=== PATIENT | female | born 1995 | race Caucasian/White ===

== ENCOUNTER 2020-08-25 20:08 | Emergency (ER) | payer BC ==
[2020-08-25 21:09] LABS: Basophils % (A) 0 %; Eosinophils # (A) 0.1 k/uL (0-0.7); Eosinophils % (A) 1 %; HCT 34.2 % (34.0-46.0); HGB 11.5 gm/dL (11.4-16.0); Lymphocytes % (A) 39 %; MCHC 33.6 g/dL (31.0-37.0); MCV 95.3 fL (80.0-100.0); Mean Platelet Volume 7.6; Monocytes # (A) 0.3 k/uL (0-1.0); Monocytes % (A) 6 %; Neutrophils # (A) 2.7 k/uL (1.3-7.7); Neutrophils % (A) 52 %; Platelet Count 214 k/uL (150-450); RBC 3.58 m/uL (3.80-5.40); RDW 12.1 % (11.5-15.5); WBC 5.2 k/uL (3.8-10.6)
--- NOTE | 2020-08-25 21:12 | CT ---
EXAMINATION TYPE: CT brain wo con DATE OF EXAM: 08/25/2020 COMPARISON: None available. HISTORY: Right eye bluriness. Hx epilepisy. Recent shoulder sx CT DLP: 1129.4 mGycm. Automated Exposure Control for Dose Reduction was Utilized. TECHNIQUE: CT scan of the head is performed without contrast. FINDINGS: There is no acute intracranial hemorrhage, mass effect, or midline shift identified. The ventricles and sulci are within normal limits in size. The globes are intact and the visualized sin uses are clear. IMPRESSION: No acute intracranial hemorrhage, mass effect, or midline shift is seen.
[2020-08-25 21:19] LABS: Partial Thromboplastin Time 24.6 sec (22.0-30.0); Prothrombin Time 10.8 sec (9.0-12.0)
[2020-08-25 21:22] LABS: ALT 11 U/L (4-34); AST 23 U/L (14-36); African American GFR (CKD) >90 (>60 ml/min/1.73 sqM); Albumin 4.2 g/dL (3.5-5.0); Alkaline Phosphatase 25 U/L (38-126); Anion Gap 5 mmol/L; Blood Urea Nitrogen 13 mg/dL (7-17); Calcium 9.2 mg/dL (8.4-10.2); Carbon Dioxide 26 mmol/L (22-30); Chloride 105 mmol/L (98-107); Glucose 94 mg/dL (74-99); Non-African American GFR(CKD) >90 (>60 ml/min/1.73 sqM); Potassium 4.5 mmol/L (3.5-5.1); Sodium 136 mmol/L (137-145); Total Protein 6.7 g/dL (6.3-8.2)
[2020-08-25] MEDS ORDERED: HYDROcodone/APAP 10-325MG 1 EACH TAB PO ONE (22:15)
--- NOTE | 2020-08-25 22:17 | ED ---
Eye Problem HPI - General Chief complaint: Eye Problems Stated complaint: Eye Issue Time Seen by Provider: 08/25/20 20:17 Source: patient Mode of arrival: ambulatory Limitations: no limitations - History of Present Illness Initial comments: 24-year-old female with hisotyr of epilepsy presenting today for chief complaint of right eye dilation and blurred vision. Patient states there 5 minutes prior to arrival she was walking into [facility] when she noticed an onset of blurred vision. She's noticed it was only her right eye. Patient had her boyfriend looked I she thought something was in it and he noticed that the pupil was dilated. Patient states her main dilated did not change and she presented to the ER patient denies any associated headache nausea vomiting neck stiffness she denies any known history of aneurysm patient does have history of epilepsy. She denies any medication changes she denies any recent ophthalmology visits are eyedrops being placed into the eye. Patient states that she recently did have a labral repair 2 days ago. Patient denies chest pain shortness of breath and leg swelling. Pt denies vision loss, diplopia, nausea, dizziness. Patient denies pain in the eye. Patient denies eye redness. patient denies experiencing this in the past. denies brain masses. patient appears nontoxic on arrival. no distress. Right arm in sling. - Related Data Allergies Allergy/AdvReac Type Severity Reaction Status Date / Time amoxicillin Allergy Rash/Hives Verified 08/25/20 20:14 dextromethorphan Allergy Rash/Hives Verified 08/25/20 20:14 [From Deconsal DM] Penicillins Allergy Rash/Hives Verified 08/25/20 20:13 phenylephrine Allergy Rash/Hives Verified 08/25/20 20:14 [From Deconsal DM] pyrilamine [From Deconsal DM] Allergy Rash/Hives Verified 08/25/20 20:14 raspberry Allergy Rash/Hives Verified 08/25/20 20:14 sulfamethoxazole Allergy Rash/Hives Verified 08/25/20 20:14 [From Bactrim] trimethoprim [From Bactrim] Allergy Rash/Hives Verified 08/25/20 20:14 Review of Systems ROS Statement: Those systems with pertinent positive or pertinent negative responses have been documented in the HPI. ROS Other: All systems not noted in ROS Statement are negative. Past Medical History Past Medical History: Seizure Disorder History of Any Multi-Drug Resistant Organisms: None Reported Past Psychological History: No Psychological Hx Reported General Exam - General Exam Comments Initial Comments: General: The patient is awake and alert, in no distress Eye: right eye +5 nonreactive, left pupil +3 round and reactive to light, extra-ocular movements are intact. No nystagmus. There is normal conjunctiva bilaterally. No signs of icterus. Visual shore intact to confrontation. 20/25 OD 20/20 OS. IOP OD is 13-14 (done twice). Ears, nose, mouth and throat: There are moist mucous membranes and no oral lesions. Neck: The neck is supple, there is no tenderness or JVD. Cardiovascular: There is a regular rate and rhythm. No murmur, rub or gallop is appreciated. Respiratory: Lungs are clear to auscultation, respirations are non-labored, breath sounds are equal. No wheezes, stridor, rales, or rhonchi. Gastrointestinal: Soft, non-distended, non-tender abdomen without masses or organomegaly noted. There is no rebound or guarding present. Musculoskeletal: Normal ROM, no tenderness. Strength 5/5 of the UE and LE b/l. Sensation intact. No pronator drift Radial pulses equal bilaterally 2+. Neurological: A&O x 3. CN II-XII intact, There are no obvious motor or sensory deficits. Coordination appears grossly intact. Speech is normal. Skin: Skin is warm and dry and no rashes or lesions are noted. Psychiatric: Cooperative, appropriate mood & affect, normal judgment. Limitations: no limitations Course Vital Signs 08/25/20 08/25/20 20:10 22:59 Temperature 97.9 F Pulse Rate 106 H 63 Respiratory 16 20 Rate Blood Pressure 130/69 130/93 O2 Sat by Pulse 98 100 Oximetry Medical Decision Making - Medical Decision Making 24-year-old female presenting for right eye blurred vision with pupil change. Pupil dilated and nonreactive at +5 on arrival. Different from the left pupil. Patient overall has no visual field deficits. Vision is intact. No nystagmus. No focalized neurological deficits aside from the pupil dilation. IOP within normal limits. No obvious retinal abnormalities. Patient had recent labrum repair right-sided, 08/23/20. Patient doesnot have history of new medications or recent eye exams. CT/CTA (-). Patient will be transfered for neurology and ophthalmology evaluation at [facility], i spoke with accepting physician, Dr. Domingo who was agreeable to answer and stated that ophthalmology and neurology were available for consultation. To compound was agreeable to care plan as well as transfer. Patient is agreeable to transfer via EMS - Lab Data Result diagrams: 08/25/20 20:53 08/25/20 20:53 Lab Results 08/25/20 08/25/20 08/25/20 Range/Units 20:53 20:53 20:53 WBC 5.2 (3.8-10.6) k/uL RBC 3.58 L (3.80-5.40) m/uL Hgb 11.5 (11.4-16.0) gm/dL Hct 34.2 (34.0-46.0) % MCV 95.3 (80.0-100.0) fL MCH 32.0 (25.0-35.0) pg MCHC 33.6 (31.0-37.0) g/dL RDW 12.1 (11.5-15.5) % Plt Count 214 (150-450) k/uL MPV 7.6 Neutrophils % 52 % Lymphocytes % 39 % Monocytes % 6 % Eosinophils % 1 % Basophils % 0 % Neutrophils # 2.7 (1.3-7.7) k/uL Lymphocytes # 2.0 (1.0-4.8) k/uL Monocytes # 0.3 (0-1.0) k/uL Eosinophils # 0.1 (0-0.7) k/uL Basophils # 0.0 (0-0.2) k/uL PT 10.8 (9.0-12.0) sec INR 1.0 (<1.2) APTT 24.6 (22.0-30.0) sec Sodium 136 L (137-145) mmol/L Potassium 4.5 (3.5-5.1) mmol/L Chloride 105 (98-107) mmol/L Carbon Dioxide 26 (22-30) mmol/L Anion Gap 5 mmol/L BUN 13 (7-17) mg/dL Creatinine 0.87 (0.52-1.04) mg/dL Est GFR (CKD-EPI)AfAm >90 (>60 ml/min/1.73 sqM) Est GFR (CKD-EPI)NonAf >90 (>60 ml/min/1.73 sqM) Glucose 94 (74-99) mg/dL Calcium 9.2 (8.4-10.2) mg/dL Total Bilirubin 1.0 (0.2-1.3) mg/dL AST 23 (14-36) U/L ALT 11 (4-34) U/L Alkaline Phosphatase 25 L (38-126) U/L Total Protein 6.7 (6.3-8.2) g/dL Albumin 4.2 (3.5-5.0) g/dL Disposition Clinical Impression: Fixed dilated pupil of right eye Disposition: OTHER INSTITUTION NOT DEFINED Condition: Stable Is patient prescribed a controlled substance at d/c from ED?: No Referrals: Serafin Gerber MD [Primary Care Provider] - 1-2 days Time of Disposition: 23:25 - Out of Hospital Transfer - Req. Specs Out of Hospital Transfer - Requested Specifics: Other Emergency Center (Dr. Domingo)
--- NOTE | 2020-08-25 23:10 | CT ---
EXAMINATION TYPE: CT angio head neck DATE OF EXAM: 08/25/2020 COMPARISON: None HISTORY: Right eye blurry, pupil changes. Hx epilepsy. CT DLP: 420.4 mGycm Automated exposure control for dose reduction was used. CONTRAST: Performed with IV Contrast, patient injected with 65 mL of Isovue 370. There are 3-D post processed images. There is normal branching pattern of the great vessels on the aortic arch. There is arterial flow in both subclavian arteries. There is arterial flow in the common internal and external carotid arteries bilaterally. There is art erial flow in both vertebral arteries. There is wide patency of the carotid artery bifurcations. There is arterial flow in the vertebrobasilar artery system. There is no evidence of carotid or verte bral artery aneurysm or dissection. There is arterial flow in the anterior middle and posterior cerebral arteries. There is normal contra st opacification of the venous sinuses. There is no evidence of intracranial aneurysm or neovasculari ty. There is no mass effect. I see no evidence of intracranial arterial stenosis. The remainder of ex am is unremarkable. IMPRESSION: Normal CT angiogram of the neck. Normal CT angiogram of the brain.
[2020-08-25] MEDS ORDERED: MORPHINE SULFATE 2 MG/ML SYRINGE IVP PRN (23:30)
[2020-08-26 00:04] VITALS: BP 140/94; PULSE 64; RESP 18; TEMP 98
== END 2020-08-26 00:06 | disposition other institution (70) ==
LOC: EC 20:08
DX: H57.04 Mydriasis (principal); H53.8 Other visual disturbances; Z88.0 Allergy status to penicillin; Z88.8 Allergy status to other drugs, medicaments and biological substances; Z88.2 Allergy status to sulfonamides; Z88.1 Allergy status to other antibiotic agents; Z91.018 Allergy to other foods; Z86.61 Personal history of infections of the central nervous system
CPT/HCPCS: 36415; 93005; 80053; 85025; 85610; 85730; 70496; 70450; 70498; 99285; 96374; J2270; Q9967

== ENCOUNTER 2020-12-27 10:26 | Emergency (ER) | payer BC ==
[2020-12-27 10:42] VITALS: RESP 18; TEMP 98.1
--- NOTE | 2020-12-27 10:58 | ED ---
Headache HPI - General Chief Complaint: Headache Stated Complaint: Migraine Time Seen by Provider: 12/27/20 10:30 Source: patient, EMS, RN notes reviewed Mode of arrival: EMS Limitations: no limitations - History of Present Illness Initial Comments: This a 25-year-old female presents emergency department via EMS chief complaint of headache possible seizure. Patient states that she has underlying migraines and seizures. Patient states she was at home working states she started getting a crescent shape or on her left eye. Patient states it seemed to move around. She states she started getting headaches that she started late down. She states she laid on her right side she is worried she may have a seizure. Patient states she has epilepsy is on Keppra. Patient states he has not missed any doses. She laid down he felt like she is getting very anxious and noticed some tingling left arm and face. She states his symptoms have resolved. She did take intermittent for headache which is improving her headache. Denies any fevers or chills no neck pain. - Related Data Home Medications Medication Instructions Recorded Confirmed Balziva 1 tab PO DAILY 12/27/20 12/27/20 Folic Acid 1 mg PO DAILY 12/27/20 12/27/20 levETIRAcetam 1,000 mg PO BID 12/27/20 12/27/20 Allergies Allergy/AdvReac Type Severity Reaction Status Date / Time amoxicillin Allergy Rash/Hives Verified 12/27/20 12:04 dextromethorphan Allergy Rash/Hives Verified 12/27/20 12:04 [From Deconsal DM] Penicillins Allergy Rash/Hives Verified 12/27/20 12:04 phenylephrine Allergy Rash/Hives Verified 12/27/20 12:04 [From Deconsal DM] pyrilamine [From Deconsal DM] Allergy Rash/Hives Verified 12/27/20 12:04 raspberry Allergy Rash/Hives Verified 12/27/20 12:04 sulfamethoxazole Allergy Rash/Hives Verified 12/27/20 12:04 [From Bactrim] trimethoprim [From Bactrim] Allergy Rash/Hives Verified 12/27/20 12:04 Review of Systems ROS Statement: Those systems with pertinent positive or pertinent negative responses have been documented in the HPI. ROS Other: All systems not noted in ROS Statement are negative. Past Medical History Past Medical History: Seizure Disorder History of Any Multi-Drug Resistant Organisms: None Reported Past Surgical History: No Surgical Hx Reported Past Psychological History: No Psychological Hx Reported Smoking Status: Never smoker Past Alcohol Use History: None Reported Past Drug Use History: None Reported General Exam Limitations: no limitations General appearance: alert, in no apparent distress Head exam: Present: atraumatic, normocephalic, normal inspection Eye exam: Present: normal appearance, PERRL, EOMI. Absent: scleral icterus, conjunctival injection, periorbital swelling ENT exam: Present: normal exam, normal oropharynx, mucous membranes moist Neck exam: Present: normal inspection, full ROM. Absent: tenderness, meningismus, lymphadenopathy Respiratory exam: Present: normal lung sounds bilaterally. Absent: respiratory distress, wheezes, rales, rhonchi, stridor Cardiovascular Exam: Present: regular rate, normal rhythm, normal heart sounds. Absent: systolic murmur, diastolic murmur, rubs, gallop, clicks Extremities exam: Present: normal inspection, full ROM, normal capillary refill. Absent: tenderness, pedal edema, joint swelling, calf tenderness Neurological exam: Present: alert, oriented X3, CN II-XII intact, reflexes normal. Absent: motor sensory deficit Skin exam: Present: warm, dry, intact, normal color. Absent: rash Course Vital Signs 12/27/20 10:38 Temperature 98.1 F Pulse Rate 67 Respiratory 18 Rate Blood Pressure 118/85 O2 Sat by Pulse 99 Oximetry Medical Decision Making - Medical Decision Making CT is unremarkable. Patient had ocular migraine. Patient will be discharged and stable condition return parameters were discussed. - Lab Data Lab Results 12/27/20 Range/Units 11:00 Urine HCG, Qual Not Detected (Not Detectd) Disposition Clinical Impression: Migraine headache Disposition: HOME SELF-CARE Condition: Stable Instructions (If sedation given, give patient instructions): Acute Headache (ED) Additional Instructions: Please return to the Emergency Department if symptoms worsen or any other concerns. Is patient prescribed a controlled substance at d/c from ED?: No Referrals: Serafin Gerber MD [Primary Care Provider] - 1-2 days Time of Disposition: 12:49
--- NOTE | 2020-12-27 12:42 | CT ---
EXAMINATION TYPE: CT brain wo con DATE OF EXAM: 12/27/2020 COMPARISON: CT brain 08/25/2020 HISTORY: Migraine CT DLP: 1099.4 mGycm. Automated Exposure Control for Dose Reduction was Utilized. TECHNIQUE: CT scan of the head is performed without contrast. FINDINGS: There is no acute intracranial hemorrhage, mass effect, or midline shift identified. The ventricles and sulci are within normal limits in size. The globes are intact and the visualized sin uses are clear. IMPRESSION: No acute intracranial hemorrhage, mass effect, or midline shift is seen.
[2020-12-27 12:58] VITALS: BP 114/69; PULSE 72
== END 2020-12-27 12:58 | disposition home or self-care (01) ==
LOC: EC 10:26
DX: G40.909 Epilepsy, unspecified, not intractable, without status epilepticus (principal); Z88.0 Allergy status to penicillin
CPT/HCPCS: 70450; 81025; 99284

== ENCOUNTER → 2021-01-16 | Outpatient (CLI) | payer BC | LOC: NEUROMAIN 06:54 | PROVIDERS: ATTEND Psychiatry & Neurology Neurology | DX: G40.909 Epilepsy, unspecified, not intractable, without status epilepticus (principal) | CPT/HCPCS: 95713 ==

== ENCOUNTER 2021-06-09 13:03 | Emergency (ER) | payer BC, OTHER ==
[2021-06-09 13:48] VITALS: BP 131/84; PULSE 97; RESP 18; TEMP 98.5
--- NOTE | 2021-06-09 14:21 | ED ---
General Adult HPI - General Chief complaint: Vaginal Bleeding Stated complaint: vaginal bleeding Time Seen by Provider: 06/09/21 14:08 Source: patient, family, RN notes reviewed Mode of arrival: ambulatory Limitations: no limitations - History of Present Illness Initial comments: This is a well-appearing 25-year-old white female that presents to the emergency room with complaints of vaginal bleeding. She states that her control was changed 3 months ago to progesterone only tablet. She has not missed any doses. She does not remember when her last menstrual period was. She is complaining of pelvic cramping. She is also having unprotected sex. She is a when he suffered a miscarriage in the past. She has a history of seizure disorder and is on Keppra. Location: pelvis Severity scale (1-10): 3 Consistency: intermittent Improves with: none Worsens with: none Associated Symptoms: other (Vaginal bleeding) - Related Data Home Medications Medication Instructions Recorded Confirmed Balziva 1 tab PO DAILY 12/27/20 12/27/20 Folic Acid 1 mg PO DAILY 12/27/20 12/27/20 levETIRAcetam 1,000 mg PO BID 12/27/20 12/27/20 Allergies Allergy/AdvReac Type Severity Reaction Status Date / Time amoxicillin Allergy Rash/Hives Verified 06/09/21 13:48 dextromethorphan Allergy Rash/Hives Verified 06/09/21 13:48 [From Deconsal DM] Penicillins Allergy Rash/Hives Verified 06/09/21 13:48 phenylephrine Allergy Rash/Hives Verified 06/09/21 13:48 [From Deconsal DM] pyrilamine [From Deconsal DM] Allergy Rash/Hives Verified 06/09/21 13:48 raspberry Allergy Rash/Hives Verified 06/09/21 13:48 sulfamethoxazole Allergy Rash/Hives Verified 06/09/21 13:48 [From Bactrim] trimethoprim [From Bactrim] Allergy Rash/Hives Verified 06/09/21 13:48 Review of Systems ROS Statement: Those systems with pertinent positive or pertinent negative responses have been documented in the HPI. ROS Other: All systems not noted in ROS Statement are negative. Past Medical History Past Medical History: Seizure Disorder History of Any Multi-Drug Resistant Organisms: None Reported Past Surgical History: Orthopedic Surgery Additional Past Surgical History / Comment(s): Cyst removal Past Psychological History: No Psychological Hx Reported Smoking Status: Never smoker Past Alcohol Use History: Occasional Past Drug Use History: None Reported General Exam Limitations: no limitations General appearance: alert, in no apparent distress Head exam: Present: atraumatic, normocephalic, normal inspection Eye exam: Present: normal appearance, PERRL, EOMI. Absent: scleral icterus, conjunctival injection, periorbital swelling Neck exam: Present: normal inspection, full ROM. Absent: tenderness, meningismus, lymphadenopathy Respiratory exam: Present: normal lung sounds bilaterally. Absent: respiratory distress, wheezes, rales, rhonchi, stridor Cardiovascular Exam: Present: regular rate, normal rhythm, normal heart sounds. Absent: systolic murmur, diastolic murmur, rubs, gallop, clicks GI/Abdominal exam: Present: soft, normal bowel sounds. Absent: distended, tenderness, guarding, rebound, rigid Extremities exam: Present: normal inspection, full ROM, normal capillary refill. Absent: tenderness, pedal edema, joint swelling, calf tenderness Back exam: Present: normal inspection, full ROM. Absent: tenderness Neurological exam: Present: alert, oriented X3 Psychiatric exam: Present: normal affect, normal mood Skin exam: Present: warm, dry, intact, normal color. Absent: rash, cyanosis, diaphoretic, petechiae, pallor Course Vital Signs 06/09/21 13:44 Temperature 98.5 F Pulse Rate 97 Respiratory 18 Rate Blood Pressure 131/84 O2 Sat by Pulse 98 Oximetry Medical Decision Making - Medical Decision Making Urine test is negative, there is no signs of infection. Patient's abdomen is soft and nontender. She is having vaginal bleeding but states that her control pills were changed 3 months ago to progesterone only. This is likely the cause of her vaginal bleeding and she does not remember when her last menstrual cycle was. She was instructed to follow-up with her OSTEOPATHIC RESIDENT. Return to the emergency room with any new or worsening symptoms. - Lab Data Lab Results 06/09/21 06/09/21 Range/Units 15:43 15:43 Urine Color Yellow Urine Appearance Cloudy H (Clear) Urine pH 7.0 (5.0-8.0) Ur Specific [place] 1.013 (1.001-1.035) Urine Protein Negative (Negative) Urine Glucose (UA) Negative (Negative) Urine Ketones Negative (Negative) Urine Blood Large H (Negative) Urine Nitrite Negative (Negative) Urine Bilirubin Negative (Negative) Urine Urobilinogen <2.0 (<2.0) mg/dL Ur Leukocyte Esterase Negative (Negative) Urine RBC <1 (0-5) /hpf Urine WBC <1 (0-5) /hpf Ur Squamous Epith Cells <1 (0-4) /hpf Urine Bacteria Rare H (None) /hpf Urine Mucus Rare H (None) /hpf Urine HCG, Qual Not Detected (Not Detectd) Disposition Clinical Impression: Vaginal bleeding Disposition: HOME SELF-CARE Condition: Good Additional Instructions: Follow-up with 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 Return to the emergency room with any new or worsening symptoms including increased heavy vaginal bleeding or pain. Is patient prescribed a controlled substance at d/c from ED?: No Referrals: Serafin Gerber MD [Primary Care Provider] - 1-2 days Time of Disposition: 16:14
[2021-06-09 15:50] LABS: Appearance,Urine Cloudy (Clear); Bacteria,Urine Rare /hpf; Bilirubin,Urine Negative (Negative); Blood,Urine Large (Negative); Color,Urine Yellow; Glucose,Urine (UA) Negative (Negative); Ketones,Urine Negative (Negative); Leukocyte Esterase,Urine Negative (Negative); Mucus,Urine Rare /hpf; Nitrite,Urine Negative (Negative); Protein,Urine Negative (Negative); RBC,Urine <1 /hpf (0-5); Specific Gravity,Urine 1.013 (1.001-1.035); Squamous Epithelial Cell,Urine <1 /hpf (0-4); Urobilinogen,Urine <2.0 mg/dL (<2.0); WBC,Urine <1 /hpf (0-5)
== END 2021-06-09 16:47 | disposition home or self-care (01) ==
LOC: EC 13:03
DX: N93.9 Abnormal uterine and vaginal bleeding, unspecified (principal); G40.909 Epilepsy, unspecified, not intractable, without status epilepticus; Z79.899 Other long term (current) drug therapy; Z88.0 Allergy status to penicillin; Z88.1 Allergy status to other antibiotic agents; Z88.2 Allergy status to sulfonamides
CPT/HCPCS: 81001; 81025; 99284

== ENCOUNTER 2021-11-15 09:33 | Emergency (ER) | payer BC ==
[2021-11-15 09:38] VITALS: TEMP 98.2
[2021-11-15] MEDS ORDERED: SODIUM CHLORIDE 0.9% 500 ML 500 ML IV ONE (09:47)
[2021-11-15 10:07] LABS: Basophils % (A) 0 %; Eosinophils % (A) 1 %; HCT 31.7 % (34.0-46.0); HGB 11.3 gm/dL (11.4-16.0); Lymphocytes # (A) 1.4 k/uL (1.0-4.8); Lymphocytes % (A) 21 %; MCH 33.3 pg (25.0-35.0); MCHC 35.5 g/dL (31.0-37.0); MCV 93.7 fL (80.0-100.0); Monocytes # (A) 0.3 k/uL (0-1.0); Monocytes % (A) 4 %; Neutrophils # (A) 4.8 k/uL (1.3-7.7); Neutrophils % (A) 72 %; Platelet Count 225 k/uL (150-450); RBC 3.38 m/uL (3.80-5.40); RDW 13.5 % (11.5-15.5); WBC 6.7 k/uL (3.8-10.6)
[2021-11-15 10:26] LABS: ALT 9 U/L (4-34); AST 16 U/L (14-36); African American GFR (CKD) >90 (>60 ml/min/1.73 sqM); Albumin 3.5 g/dL (3.5-5.0); Alkaline Phosphatase 24 U/L (38-126); Anion Gap 5 mmol/L; Blood Urea Nitrogen 10 mg/dL (7-17); Calcium 8.3 mg/dL (8.4-10.2); Carbon Dioxide 23 mmol/L (22-30); Chloride 107 mmol/L (98-107); Glucose 93 mg/dL (74-99); Non-African American GFR(CKD) >90 (>60 ml/min/1.73 sqM); Potassium 3.8 mmol/L (3.5-5.1); Sodium 135 mmol/L (137-145); Total Protein 6.2 g/dL (6.3-8.2)
--- NOTE | 2021-11-15 10:31 | ED ---
General Adult HPI - General Chief complaint: Abdominal Pain Stated complaint: 15 wks preg, abd pain Time Seen by Provider: 11/15/21 09:35 Source: patient, RN notes reviewed, old records reviewed Mode of arrival: ambulatory Limitations: no limitations - History of Present Illness Initial comments: This is a 26-year-old female presents emergency department is 15 weeks . Patient comes in with right lower quadrant abdominal pain. Patient states it started this morning and it seems to increase with movement. Patient denies any nausea vomiting diarrhea. Patient does not want anything for the pain. Patient denies any vaginal bleeding. Patient denies any discharge patient denies any hematuria or urinary frequency or dysuria. Patient denies any fever or chills. Patient denies any back pain. - Related Data Home Medications Medication Instructions Recorded Confirmed Folic Acid 1 mg PO BID 12/27/20 11/15/21 levETIRAcetam 1,000 mg PO BID 12/27/20 11/15/21 Aspirin EC [Ecotrin Low Dose] 81 mg PO DAILY 11/15/21 11/15/21 Cholecalciferol [Vitamin D3 (25 25 mcg PO DAILY 11/15/21 11/15/21 Mcg = 1000 Iu)] Docusate [Colace] 100 mg PO DAILY 11/15/21 11/15/21 Magnesium Oxide 400 mg PO DAILY 11/15/21 11/15/21 Pnv,Calcium 72/Iron/Folic Acid 1 tab PO DAILY 11/15/21 11/15/21 [ Plus Tablet] Ubidecarenone [Co Q-10] 200 mg PO DAILY 11/15/21 11/15/21 Allergies Allergy/AdvReac Type Severity Reaction Status Date / Time amoxicillin Allergy Rash/Hives Verified 11/15/21 10:58 dextromethorphan Allergy Rash/Hives Verified 11/15/21 10:58 [From Deconsal DM] Penicillins Allergy Rash/Hives Verified 11/15/21 10:58 phenylephrine Allergy Rash/Hives Verified 11/15/21 10:58 [From Deconsal DM] pyrilamine [From Deconsal DM] Allergy Rash/Hives Verified 11/15/21 10:58 raspberry Allergy Rash/Hives Verified 11/15/21 10:58 sulfamethoxazole Allergy Rash/Hives Verified 11/15/21 10:58 [From Bactrim] trimethoprim [From Bactrim] Allergy Rash/Hives Verified 11/15/21 10:58 Review of Systems ROS Statement: Those systems with pertinent positive or pertinent negative responses have been documented in the HPI. ROS Other: All systems not noted in ROS Statement are negative. Past Medical History Past Medical History: Seizure Disorder History of Any Multi-Drug Resistant Organisms: None Reported Past Surgical History: Orthopedic Surgery Additional Past Surgical History / Comment(s): Cyst removal Past Psychological History: No Psychological Hx Reported Smoking Status: Never smoker Past Alcohol Use History: Occasional Past Drug Use History: None Reported General Exam - General Exam Comments Initial Comments: GENERAL: Patient is well-developed and well-nourished. Patient is nontoxic and well- hydrated and is in mild distress. ENT: Neck is soft and supple. No significant lymphadenopathy is noted. Oropharynx is clear. Moist mucous membranes. Neck has full range of motion without eliciting any pain. EYES: The sclera were anicteric and conjunctiva were pink and moist. Extraocular movements were intact and pupils were equal round and reactive to light. Eye lids were unremarkable. PULMONARY: Unlabored respirations. Good breath sounds bilaterally. No audible rales rhonchi or wheezing was noted. CARDIOVASCULAR: There is a regular rate and rhythm without any murmurs gallops or rubs. ABDOMEN: Abdomen has rebound tenderness in the right lower quadrant. SKIN: Skin is clear with no lesions or rashes and otherwise unremarkable. NEUROLOGIC: Patient is alert and oriented x3. Cranial nerves II through XII are grossly intact. Motor and sensory are also intact. Normal speech, volume and content. Symmetrical smile. MUSCULOSKELETAL: Normal extremities with adequate strength and full range of motion. LYMPHATICS: No significant lymphadenopathy is noted PSYCHIATRIC: Normal psychiatric evaluation. Limitations: no limitations Course Vital Signs 11/15/21 09:35 Temperature 98.2 F Pulse Rate 95 Respiratory 18 Rate Blood Pressure 110/69 O2 Sat by Pulse 98 Oximetry Medical Decision Making - Medical Decision Making Ultrasound showed a viable intrauterine heart rate was 145. Ultrasound had good flow to the ovary on the right. There was a small cyst. Computed tomography scan to rule out appendicitis was done and there was no signs of appendicitis on the CAT scan patient did get a contrast per rectum and after that she had a large bowel movement stated the pain was considerably bett er. Dr. Zhang was consulted came down and saw the patient and thought the patient to be discharged home as long as there were no signs of appendicitis. Patient understands that appendicitis cannot be ruled out completely and she will return if symptoms worsen or there are any new signs. - Lab Data Result diagrams: 11/15/21 09:56 11/15/21 09:56 Lab Results 11/15/21 11/15/21 11/15/21 Range/Units 09:56 09:56 09:56 WBC 6.7 (3.8-10.6) k/uL RBC 3.38 L (3.80-5.40) m/uL Hgb 11.3 L (11.4-16.0) gm/dL Hct 31.7 L (34.0-46.0) % MCV 93.7 (80.0-100.0) fL MCH 33.3 (25.0-35.0) pg MCHC 35.5 (31.0-37.0) g/dL RDW 13.5 (11.5-15.5) % Plt Count 225 (150-450) k/uL MPV 8.0 Neutrophils % 72 % Lymphocytes % 21 % Monocytes % 4 % Eosinophils % 1 % Basophils % 0 % Neutrophils # 4.8 (1.3-7.7) k/uL Lymphocytes # 1.4 (1.0-4.8) k/uL Monocytes # 0.3 (0-1.0) k/uL Eosinophils # 0.0 (0-0.7) k/uL Basophils # 0.0 (0-0.2) k/uL Sodium 135 L (137-145) mmol/L Potassium 3.8 (3.5-5.1) mmol/L Chloride 107 (98-107) mmol/L Carbon Dioxide 23 (22-30) mmol/L Anion Gap 5 mmol/L BUN 10 (7-17) mg/dL Creatinine 0.56 (0.52-1.04) mg/dL Est GFR (CKD-EPI)AfAm >90 (>60 ml/min/1.73 sqM) Est GFR (CKD-EPI)NonAf >90 (>60 ml/min/1.73 sqM) Glucose 93 (74-99) mg/dL Calcium 8.3 L (8.4-10.2) mg/dL Total Bilirubin 2.0 H (0.2-1.3) mg/dL AST 16 (14-36) U/L ALT 9 (4-34) U/L Alkaline Phosphatase 24 L (38-126) U/L Total Protein 6.2 L (6.3-8.2) g/dL Albumin 3.5 (3.5-5.0) g/dL Urine Color Yellow Urine Appearance Cloudy H (Clear) Urine pH 7.0 (5.0-8.0) Ur Specific Bastian 1.020 (1.001-1.035) Urine Protein Negative (Negative) Urine Glucose (UA) Negative (Negative) Urine Ketones Negative (Negative) Urine Blood Negative (Negative) Urine Nitrite Negative (Negative) Urine Bilirubin Negative (Negative) Urine Urobilinogen <2.0 (<2.0) mg/dL Ur Leukocyte Esterase Small (Negative) Urine WBC 1 (0-5) /hpf Ur Squamous Epith Cells 20 H (0-4) /hpf Urine Bacteria Many H (None) /hpf Disposition Clinical Impression: Abdominal pain Disposition: HOME SELF-CARE Instructions (If sedation given, give patient instructions): Abdominal Pain (ED) Additional Instructions: Patient should return if there is any worsening abdominal pain, nausea vomiting, or fever Is patient prescribed a controlled substance at d/c from ED?: No Referrals: Serafin Gerber MD [Primary Care Provider] - 1-2 days Time of Disposition: 13:28
--- NOTE | 2021-11-15 10:53 | US ---
EXAMINATION TYPE: US abdomen APPY DATE OF EXAM: 11/15/2021 COMPARISON: NONE CLINICAL HISTORY: Right lower quadrant abdominal pain. RLQ pain x 1 day, patient is 15 weeks APPENDIX Appendix not seen IMPRESSION: Nonvisualization of the appendix. No evidence for right lower quadrant abscess or fluid collection.
--- NOTE | 2021-11-15 10:58 | US ---
EXAMINATION TYPE: US OB >= 14 wk fetus DATE OF EXAM: 11/15/2021 COMPARISON: None CLINICAL HISTORY: Right lower quadrant abdominal painRight lower quadrant pain x 1 day TECHNIQUE: Transabdominal (TA) GESTATIONAL AGE / DATING Physician Established: (15 weeks/2 days) EDC: 05/07/2022 Dates by LMP: LMP unknown Dates by First Scan: No previous here Dates by Current Scan: (15 weeks/6 days) EDC: 05/03/2022 SURVEY IUP: Single PLACENTA: Anterior PREVIA: Low Lying - tip of placenta 2.1cm from internal cervical os JEREMY: 10.9 cm Normal CERVICAL LENGTH (transabdominal: norm > 3.0cm): 3.2 cm BIOMETRY PRESENTATION: Breech LIE: Longitudinal BPD: 3.1 cm 15 weeks / 6 days HC: 11.8 cm 15 weeks / 6 days AC: 9.1 cm 15 weeks / 2 days FL: 1.9 cm 15 weeks / 5 days ESTIMATED WEIGHT IN GRAMS: 128 grams ESTIMATED WEIGHT IN LBS/OZ: 0 lbs. 5 oz. WEIGHT PERCENTAGE BASED ON ESTABLISHED DATES: 58% HC/AC: 1.30 Normal FL/AC: 21.36 HEART RATE: 148 bpm RHYTHM: Normal Left Ovary: wnl Right Ovary: 2.1 x 2.0 x 2.1cm corpus luteum, good arterial and venous flow seen, no torsion Bilateral Adnexa: wnl IMPRESSION: Single viable intrauterine . Right ovarian corpus luteal cyst.
[2021-11-15 10:59] LABS: Appearance,Urine Cloudy (Clear); Color,Urine Yellow
[2021-11-15 11:00] LABS: Bilirubin,Urine Negative (Negative); Glucose,Urine (UA) Negative (Negative); Ketones,Urine Negative (Negative); Protein,Urine Negative (Negative)
[2021-11-15 11:01] LABS: Blood,Urine Negative (Negative); Leukocyte Esterase,Urine Small (Negative); Nitrite,Urine Negative (Negative); Urobilinogen,Urine <2.0 mg/dL (<2.0)
[2021-11-15 11:03] LABS: Bacteria,Urine Many /hpf; Squamous Epithelial Cell,Urine 20 /hpf (0-4); WBC,Urine 1 /hpf (0-5)
--- NOTE | 2021-11-15 13:13 | CT ---
EXAMINATION TYPE: CT abdomen pelvis w con DATE OF EXAM: 11/15/2021 COMPARISON: Ultrasound performed earlier same day HISTORY: Rt lower quadrant pain CT DLP: 353.7 mGycm Automated exposure control for dose reduction was used. TECHNIQUE: Helical acquisition of images was performed from the lung bases through the pelvis. CONTRAST: Performed without Oral Contrast and with IV Contrast, patient injected with 100 mL of Isovue 300. FINDINGS: 15 weeks patient. The scan was performed after rectal contrast administration. The scan was performed as requested by the referring physician. Well distended colon. No evidence of contrast leak. Fecal loading of the colon suggestive of constipa tion. Unremarkable ileocecal junction. The appendix could not be properly identified, likely compress ed between the distended cecum, the right ovary and the gravid uterus. No secondary signs of acute ap pendicitis. Tubular slightly hyperenhancing structure is seen in the right side of the lower abdomen superior to the gravid uterus best appreciated in image #51, series 201 which could represent a nondi stended ileal loops. Mild acute appendicitis cannot be excluded. Hepatic dome cyst, otherwise unremarkable liver, gallbladder, pancreas, adrenals and kidneys. Bulky s pleen without definite splenic focal lesion. Unremarkable abdominal aorta. Unremarkable urinary bladd er. Right ovarian cyst/follicle. No suspicious lymphadenopathy or sizable ascites. No bowel obstructi on. No free peritoneal air. Unremarkable lung bases. No aggressive bone lesion. IMPRESSION: The appendix could not be properly identified. No secondary signs of acute appendicitis. The describe d tubular structure in the right lower quadrant superior to the uterus could represent nondistended i mcdowell loops however mild acute appendicitis cannot be excluded. Recommend clinical correlation. Please note that the bowel are suboptimally assessed due to paucity of intra-abdominal fat and the gravid u terus.
[2021-11-15 13:42] VITALS: BP 123/62; PULSE 82; RESP 16
--- NOTE | 2021-11-15 16:00 | P.GSCN ---
History of Present Illness Consult date: 11/15/21 History of present illness: CHIEF COMPLAINT: Abdominal pain HISTORY OF PRESENT ILLNESS: This is a 26-year-old female who presented to hospital with complaints of right lower quadrant abdominal pain that started a little over a week ago. She reports that she did contact her DIRECTOR PUBLIC SERVICE on Thursday and was told that it might be due to round ligament pain. Patient is 15 weeks . Patient denies any nausea or vomiting. She reports that the pain did become more severe. Patient reports that her pain did improve after a bowel movement. She had a computed tomography scan abdomen and pelvis completed which stated that the appendix cannot be properly identified. No secondary signs of acute appendicitis. They describe tubular structure in the right lower quadrant superior to the uterus could represent nondistended ileal loops however mild decubitus is cannot be excluded. Please note that the bowel are supple optimal he assessed due toapucity of intra-abdominal fat and the gravid uterus. Patient seen and examined with Dr. barker. CAT scan results reviewed with Dr. barker. No evidence of an acute appendicitis. Patient is afebrile. And white count is normal. Patient's pain has shown improvement since admission. PAST MEDICAL HISTORY: Seizure disorder PAST SURGICAL HISTORY: See list. MEDICATIONS: See list. ALLERGIES: See list. SOCIAL HISTORY: No illicit drug use. REVIEW OF SYSTEMS: CONSTITUTIONAL: Denies fever or chills. HEENT: Denies blurred vision, vision changes, or eye pain. Denies hemoptysis CARDIOVASCULAR: Denies chest pain or pressure. RESPIRATORY: No shortness of breath. GASTROINTESTINAL: See HPI for pertinent findings HEMATOLOGIC: Denies bleeding disorders. GENITOURINARY: Denies any blood in urine or increased urinary frequency. SKIN: Denies pruitis. Denies rash. PHYSICAL EXAM: VITAL SIGNS: Reviewed GENERAL: Well-developed in no acute distress. HEENT: No sclera icterus. Extraocular movements grossly intact. Moist buccal mucosa. Head is atraumatic, normocephalic. No nasal drainage. ABDOMEN: Soft. Nondistended. Mild tenderness right lower abdomen NEUROLOGIC: Alert and oriented. Cranial nerves II through XII grossly intact. LABORATORY DATA: WBC 6.7 hemoglobin 11.3 platelets 225 Sodium 135 potassium 3.8 creatinine 0.56 LFTs normal IMAGING: Ultrasound shows single viable intrauterine . Right ovarian corpus luteal cyst Computed tomography scan results as stated above ASSESSMENT: 1. Abdominal pain. No evidence of acute appendicitis. Pain could be related to round ligament pain or constipation 2. Right ovarian cyst PLAN: -No surgical intervention planned -Patient is stable from surgical standpoint for discharge -Patient educated to return to the hospital if she has increase in pain and/or fevers Thank you for this consultation Physician Supervisor [employer] note has been reviewed by physician. Signing provider agrees with the documented findings, assessment, and plan of care. Past Medical History Past Medical History: Seizure Disorder History of Any Multi-Drug Resistant Organisms: None Reported Past Surgical History: Orthopedic Surgery Additional Past Surgical History / Comment(s): Cyst removal Past Psychological History: No Psychological Hx Reported Smoking Status: Never smoker Past Alcohol Use History: Occasional Past Drug Use History: None Reported Medications and Allergies Home Medications Medication Instructions Recorded Confirmed Type Folic Acid 1 mg PO BID 12/27/20 11/15/21 History levETIRAcetam 1,000 mg PO BID 12/27/20 11/15/21 History Aspirin EC [Ecotrin Low Dose] 81 mg PO DAILY 11/15/21 11/15/21 History Cholecalciferol [Vitamin D3 (25 25 mcg PO DAILY 11/15/21 11/15/21 History Mcg = 1000 Iu)] Docusate [Colace] 100 mg PO DAILY 11/15/21 11/15/21 History Magnesium Oxide 400 mg PO DAILY 11/15/21 11/15/21 History Pnv,Calcium 72/Iron/Folic Acid 1 tab PO DAILY 11/15/21 11/15/21 History [ Plus Tablet] Ubidecarenone [Co Q-10] 200 mg PO DAILY 11/15/21 11/15/21 History Allergies Allergy/AdvReac Type Severity Reaction Status Date / Time amoxicillin Allergy Rash/Hives Verified 11/15/21 10:58 dextromethorphan Allergy Rash/Hives Verified 11/15/21 10:58 [From Deconsal DM] Penicillins Allergy Rash/Hives Verified 11/15/21 10:58 phenylephrine Allergy Rash/Hives Verified 11/15/21 10:58 [From Deconsal DM] pyrilamine [From Deconsal DM] Allergy Rash/Hives Verified 11/15/21 10:58 raspberry Allergy Rash/Hives Verified 11/15/21 10:58 sulfamethoxazole Allergy Rash/Hives Verified 11/15/21 10:58 [From Bactrim] trimethoprim [From Bactrim] Allergy Rash/Hives Verified 11/15/21 10:58 Surgical - Exam Vital Signs Temp Pulse Resp BP Pulse Ox 98.2 F 95 18 110/69 98 11/15/21 09:35 11/15/21 09:35 11/15/21 09:35 11/15/21 09:35 11/15/21 09:35 Results - Labs 11/15/21 09:56 11/15/21 09:56 Abnormal Lab Results - Last 24 Hours (Table) 11/15/21 11/15/21 11/15/21 Range/Units 09:56 09:56 09:56 RBC 3.38 L (3.80-5.40) m/uL Hgb 11.3 L (11.4-16.0) gm/dL Hct 31.7 L (34.0-46.0) % Sodium 135 L (137-145) mmol/L Calcium 8.3 L (8.4-10.2) mg/dL Total Bilirubin 2.0 H (0.2-1.3) mg/dL Alkaline Phosphatase 24 L (38-126) U/L Total Protein 6.2 L (6.3-8.2) g/dL Urine Appearance Cloudy H (Clear) Ur Squamous Epith Cells 20 H (0-4) /hpf Urine Bacteria Many H (None) /hpf Diabetes panel 11/15/21 Range/Units 09:56 Sodium 135 L (137-145) mmol/L Potassium 3.8 (3.5-5.1) mmol/L Chloride 107 (98-107) mmol/L Carbon Dioxide 23 (22-30) mmol/L BUN 10 (7-17) mg/dL Creatinine 0.56 (0.52-1.04) mg/dL Glucose 93 (74-99) mg/dL Calcium 8.3 L (8.4-10.2) mg/dL AST 16 (14-36) U/L ALT 9 (4-34) U/L Alkaline Phosphatase 24 L (38-126) U/L Total Protein 6.2 L (6.3-8.2) g/dL Albumin 3.5 (3.5-5.0) g/dL Calcium panel 11/15/21 Range/Units 09:56 Calcium 8.3 L (8.4-10.2) mg/dL Albumin 3.5 (3.5-5.0) g/dL Pituitary panel 11/15/21 Range/Units 09:56 Sodium 135 L (137-145) mmol/L Potassium 3.8 (3.5-5.1) mmol/L Chloride 107 (98-107) mmol/L Carbon Dioxide 23 (22-30) mmol/L BUN 10 (7-17) mg/dL Creatinine 0.56 (0.52-1.04) mg/dL Glucose 93 (74-99) mg/dL Calcium 8.3 L (8.4-10.2) mg/dL Adrenal panel 11/15/21 Range/Units 09:56 Sodium 135 L (137-145) mmol/L Potassium 3.8 (3.5-5.1) mmol/L Chloride 107 (98-107) mmol/L Carbon Dioxide 23 (22-30) mmol/L BUN 10 (7-17) mg/dL Creatinine 0.56 (0.52-1.04) mg/dL Glucose 93 (74-99) mg/dL Calcium 8.3 L (8.4-10.2) mg/dL Total Bilirubin 2.0 H (0.2-1.3) mg/dL AST 16 (14-36) U/L ALT 9 (4-34) U/L Alkaline Phosphatase 24 L (38-126) U/L Total Protein 6.2 L (6.3-8.2) g/dL Albumin 3.5 (3.5-5.0) g/dL
== END 2021-11-15 13:54 | disposition home or self-care (01) ==
LOC: EC 09:33
DX: O26.892 Other specified pregnancy related conditions, second trimester (principal); O34.82 Maternal care for other abnormalities of pelvic organs, second trimester; N83.201 Unspecified ovarian cyst, right side; Z3A.15 15 weeks gestation of pregnancy; Z79.82 Long term (current) use of aspirin; Z88.0 Allergy status to penicillin; Z88.1 Allergy status to other antibiotic agents; Z88.2 Allergy status to sulfonamides
CPT/HCPCS: 99284; 36415; 80053; 85025; 81001; 93976; 76705; 76805; 74177; Q9967

== ENCOUNTER 2023-02-06 12:35 | Emergency (ER) | payer OTHER ==
[2023-02-06] MEDS ORDERED: ONDANSETRON 4 MG/2 ML VIAL IVP STA (12:54)
[2023-02-06] MEDS ORDERED: SODIUM CHLORIDE 0.9% 1,000 ML IV STA (12:54)
[2023-02-06] MEDS ORDERED: KETOROLAC 15 MG/ML 1 ML VIAL IVP STA (12:54)
--- NOTE | 2023-02-06 12:59 | ED ---
Abdominal Pain HPI - General Chief Complaint: Abdominal Pain Stated Complaint: upper abd pain/back pain Time Seen by Provider: 02/06/23 12:51 Source: patient, RN notes reviewed Mode of arrival: ambulatory Limitations: no limitations - History of Present Illness Initial Comments: This is a 27-year-old female who presents to the emergency department for ab dominal pain. States that this is in the upper abdomen and wraps around into her back. States that this started shortly after eating fried walleye last night. She has nausea but no vomiting. Denies any changes in bowel habits. Also denies any history of similar symptoms in the past. She went to urgent care before coming here and was told to come to the emergency department for the possibility of a problem with her gallbladder. She is 9 months . She is not breast-feeding. Denies any fevers, chills, sore throat, cough, dyspnea, chest pain, palpitations, vomiting, diarrhea, or headaches. MD Complaint: abdominal pain Onset/Timin -: days(s) Location: RUQ Radiation: back Associated Symptoms: nausea - Related Data Home Medications Medication Instructions Recorded Confirmed Folic Acid 1 mg PO BID 12/27/20 11/15/21 levETIRAcetam 1,000 mg PO BID 12/27/20 11/15/21 Aspirin EC [Ecotrin Low Dose] 81 mg PO DAILY 11/15/21 11/15/21 Cholecalciferol [Vitamin D3 (25 25 mcg PO DAILY 11/15/21 11/15/21 Mcg = 1000 Iu)] Docusate [Colace] 100 mg PO DAILY 11/15/21 11/15/21 Magnesium Oxide 400 mg PO DAILY 11/15/21 11/15/21 Vit No.180/Iron/Folic 1 tab PO DAILY 11/15/21 11/15/21 [ Plus Tablet] Ubidecarenone [Co Q-10] 200 mg PO DAILY 11/15/21 11/15/21 Previous Rx's Medication Instructions Recorded Ketorolac [Toradol] 10 mg PO Q6HR PRN #12 tab 02/06/23 Ondansetron Odt [Zofran Odt] 4 mg PO Q8HR PRN #15 tab 02/06/23 Allergies Allergy/AdvReac Type Severity Reaction Status Date / Time amoxicillin Allergy Rash/Hives Verified 02/06/23 12:48 dextromethorphan Allergy Rash/Hives Verified 02/06/23 12:48 [From Deconsal DM] Penicillins Allergy Rash/Hives Verified 02/06/23 12:48 phenylephrine Allergy Rash/Hives Verified 02/06/23 12:48 [From Deconsal DM] pyrilamine [From Deconsal DM] Allergy Rash/Hives Verified 02/06/23 12:48 raspberry Allergy Rash/Hives Verified 02/06/23 12:48 sulfamethoxazole Allergy Rash/Hives Verified 02/06/23 12:48 [From Bactrim] trimethoprim [From Bactrim] Allergy Rash/Hives Verified 02/06/23 12:48 Review of Systems ROS Statement: Those systems with pertinent positive or pertinent negative responses have been documented in the HPI. ROS Other: All systems not noted in ROS Statement are negative. Past Medical History Past Medical History: Seizure Disorder History of Any Multi-Drug Resistant Organisms: None Reported Past Surgical History: Orthopedic Surgery Additional Past Surgical History / Comment(s): Cyst removal Past Psychological History: No Psychological Hx Reported Smoking Status: Never smoker Past Alcohol Use History: Occasional Past Drug Use History: None Reported General Exam Limitations: no limitations General appearance: alert, in no apparent distress Head exam: Present: atraumatic, normocephalic, normal inspection Respiratory exam: Present: normal lung sounds bilaterally. Absent: respiratory distress, wheezes, rales, rhonchi, stridor Cardiovascular Exam: Present: regular rate, normal rhythm, normal heart sounds. Absent: systolic murmur, diastolic murmur, rubs, gallop, clicks GI/Abdominal exam: Present: soft, tenderness (RUQ), normal bowel sounds. Absent: distended Neurological exam: Present: alert, oriented X3, CN II-XII intact Psychiatric exam: Present: normal affect, normal mood Skin exam: Present: warm, dry, intact, normal color. Absent: rash Course Vital Signs 02/06/23 02/06/23 12:46 15:53 Temperature 98.0 F 98.2 F Pulse Rate 67 72 Respiratory 20 18 Rate Blood Pressure 121/83 120/72 O2 Sat by Pulse 100 98 Oximetry Medical Decision Making - Medical Decision Making This is a 27-year-old female who presents to the emergency department for abdominal pain. Was pt. sent in by a medical professional or institution? @ -Urgent Care Did you speak to anyone other than the patient for history? @ -No Did you review nursing and triage notes? @ -Yes, and I agree, it is accurate with regards to the patient's symptoms. Were old charts reviewed? @ -No Differential Diagnosis? @ -Differential Abdominal Pain Women: Appendicitis, Cholecystitis, diverticulosis, ischemic bowel, pancreatitis, hepatitis, UTI, gastroenteritis, AAA, incarcerated hernia, bowel obstruction, constipation, inflammatory bowel, hepatitis, peptic ulcer disease, splenic infarction, perforated viscus, vulvitis, ovarian torsion, PID, kidney stone, placenta abruption, this is not meant to be an all-inclusive list EKG interpreted by me (3pts min.)? @ -Not obtained X-rays interpreted by me (1pt min.)? @ -Not obtained CT interpreted by me (1pt min.)? @ -Not obtained U/S interpreted by me (1pt. min.)? @ -Gallbladder US obtained. My interpretation identifies no evidence of cholelithiasis or gallbladder wall thickening. What testing was considered but not performed? (CT, X-rays, U/S, labs)? Why? @ -None What meds were considered but not given? Why? @ -None Did you discuss the management of the patient with other professionals? @ -No Did you reconcile home meds? @ -No Was smoking cessation discussed for >3mins.? @ -No Was critical care preformed (if so, how long)? @ -No Were there social determinants of health that impacted care today? How? (Homele ssness, low income, unemployed, alcoholism, drug addiction, transportation, low edu. Level, literacy, decrease access to med. care, longterm, rehab)? @ -No Was there de-escalation of care discussed even if they declined? (Discuss DNR or withdrawal of care, Hospice)? @ -No What co-morbidities impacted this encounter? (DM, HTN, Smoking, COPD, CAD, Cancer, CVA, Hep., AIDS, mental health diagnosis, sleep apnea, morbid obesity)? @ -None Was patient admitted / discharged? @ -Discharged. Lab work obtained and found to be nonactionable. Gallbladder ultrasound also reveals no acute findings. Nausea was well-controlled with Zofran, pain only moderately controlled with Toradol. She was subsequently given Pepcid and [place], which did offer more improvement to the pain. Discussed that while she does not have gallstones, this does not rule out the possibility of biliary dyskinesia, indicating that her gallbladder is not functioning appropriately. We discussed that she would need a HIDA scan in order to diagnose this. Information for GI follow-up provided for further discussion of this. Also advised she discuss this with her primary care provider, as they may be able to order it as well. Prescription for Zofran and Toradol provided with dosing instructions reviewed. Recommended she follow a low-fat bland diet for the meantime to reduce the risk of future episodes in the event this is related to her gallbladder. Undiagnosed new problem with uncertain prognosis? @ -None Drug Therapy requiring intensive monitoring for toxicity (Heparin, Nitro, Insulin, Cardizem)? @ -None Were any procedures done? @ -None Diagnosis/symptom? @ -Biliary dyskinesia Acute, or Chronic, or Acute on Chronic? @ -Acute Uncomplicated (without systemic symptoms) or Complicated (systemic symptoms)? @ -Uncomplicated Side effects of treatment? @ -None Exacerbation, Progression, or Severe Exacerbation] @ -Not applicable Poses a threat to life or bodily function? @ -No Return precautions reviewed in depth, the patient is instructed to return to the emergency department with any new, worsening, or concerning symptoms. Patient verbalized understanding. This case was discussed in detail with the attending ED physician, Dr. Merritt. Presentation, findings, and treatment plan discussed in detail as well. - Lab Data Result diagrams: 02/06/23 13:04 02/06/23 13:04 Lab Results 02/06/23 02/06/23 02/06/23 Range/Units 13:04 13:04 13:04 WBC 3.3 L (3.8-10.6) k/uL RBC 4.25 (3.80-5.40) m/uL Hgb 13.4 (11.4-16.0) gm/dL Hct 38.4 (34.0-46.0) % MCV 90.4 (80.0-100.0) fL MCH 31.4 (25.0-35.0) pg MCHC 34.8 (31.0-37.0) g/dL RDW 12.2 (11.5-15.5) % Plt Count 227 (150-450) k/uL MPV 7.9 Neutrophils % 44 % Lymphocytes % 46 % Monocytes % 6 % Eosinophils % 1 % Basophils % 1 % Neutrophils # 1.4 (1.3-7.7) k/uL Lymphocytes # 1.5 (1.0-4.8) k/uL Monocytes # 0.2 (0-1.0) k/uL Eosinophils # 0.0 (0-0.7) k/uL Basophils # 0.0 (0-0.2) k/uL Sodium 139 (137-145) mmol/L Potassium 4.0 (3.5-5.1) mmol/L Chloride 103 (98-107) mmol/L Carbon Dioxide 27 (22-30) mmol/L Anion Gap 9 mmol/L BUN 12 (7-17) mg/dL Creatinine 0.70 (0.52-1.04) mg/dL Est GFR (CKD-EPI)AfAm >90 (>60 ml/min/1.73 sqM) Est GFR (CKD-EPI)NonAf >90 (>60 ml/min/1.73 sqM) Glucose 97 (74-99) mg/dL Plasma Lactic Acid Jean Carlos 0.6 L (0.7-2.0) mmol/L Calcium 9.0 (8.4-10.2) mg/dL Total Bilirubin 1.6 H (0.2-1.3) mg/dL AST 19 (14-36) U/L ALT 16 (4-34) U/L Alkaline Phosphatase 45 (38-126) U/L Total Protein 7.3 (6.3-8.2) g/dL Albumin 4.4 (3.5-5.0) g/dL Amylase 54 (30-110) U/L Lipase 68 (23-300) U/L HCG, Qual Not Detected - Radiology Data Radiology results: report reviewed, image reviewed Disposition Clinical Impression: Biliary dyskinesia Disposition: HOME SELF-CARE Instructions (If sedation given, give patient instructions): Biliary Dyskinesia (DC) Additional Instructions: Return to the emergency department with any new, worsening, or concerning symptoms. Take either the Toradol or another [id number]-peh-[id number] anti-inflammatory such as ibuprofen. Do not take them together. You may take either of them with Tylenol. The Zofran can be used up to every 8 hours as needed for nausea and vomiting. Contact gastroenterology as listed below for a follow-up appointment and to discuss a HIDA scan for evaluation of gallbladder function. You can also discuss this with your primary care provider. Follow up with your primary care provider in 1-2 days. Prescriptions: Ketorolac [Toradol] 10 mg PO Q6HR PRN #12 tab PRN Reason: Pain Ondansetron Odt [Zofran Odt] 4 mg PO Q8HR PRN #15 tab PRN Reason: Nausea And Vomiting Is patient prescribed a controlled substance at d/c from ED?: No Referrals: Miles Tam MD [Primary Care Provider] - 1-2 days Mikala Macias MD [STAFF PHYSICIAN] - 1-2 days
[2023-02-06 13:31] LABS: Basophils % (A) 1 %; Eosinophils % (A) 1 %; HCT 38.4 % (34.0-46.0); HGB 13.4 gm/dL (11.4-16.0); Lymphocytes # (A) 1.5 k/uL (1.0-4.8); Lymphocytes % (A) 46 %; MCH 31.4 pg (25.0-35.0); MCHC 34.8 g/dL (31.0-37.0); MCV 90.4 fL (80.0-100.0); Mean Platelet Volume 7.9; Monocytes # (A) 0.2 k/uL (0-1.0); Monocytes % (A) 6 %; Neutrophils # (A) 1.4 k/uL (1.3-7.7); Neutrophils % (A) 44 %; Platelet Count 227 k/uL (150-450); RBC 4.25 m/uL (3.80-5.40); RDW 12.2 % (11.5-15.5); WBC 3.3 k/uL (3.8-10.6)
[2023-02-06 13:49] LABS: ALT 16 U/L (4-34); AST 19 U/L (14-36); African American GFR (CKD) >90 (>60 ml/min/1.73 sqM); Albumin 4.4 g/dL (3.5-5.0); Alkaline Phosphatase 45 U/L (38-126); Amylase 54 U/L (30-110); Anion Gap 9 mmol/L; Blood Urea Nitrogen 12 mg/dL (7-17); Carbon Dioxide 27 mmol/L (22-30); Chloride 103 mmol/L (98-107); Glucose 97 mg/dL (74-99); Lipase 68 U/L (23-300); Non-African American GFR(CKD) >90 (>60 ml/min/1.73 sqM); Sodium 139 mmol/L (137-145); Total Bilirubin 1.6 mg/dL (0.2-1.3); Total Protein 7.3 g/dL (6.3-8.2)
[2023-02-06 14:05] LABS: HCG,Qualitative Serum Not Detected
--- NOTE | 2023-02-06 14:06 | US ---
EXAMINATION TYPE: US gallbladder DATE OF EXAM: 02/06/2023 COMPARISON: CT 11/15/2021 CLINICAL INDICATION: Female, 27 years old with history of RUQ pain; TECHNIQUE: Multiple sonographic images of the right upper quadrant are obtained. FINDINGS: EXAM MEASUREMENTS: Liver Length: 13.7 cm Gallbladder Wall: 0.3 cm CBD: 0.4 cm Right Kidney: 11.0 x 3.6 x 4.6 cm API DEVELOPER NOTES: Pancreas: wnl Liver: wnl Gallbladder: No stones seen Evidence for sonographic Schumacher's sign: No CBD: wnl Right Kidney: No hydronephrosis or masses seen IMPRESSION: No shadowing mobile gallstones or ultrasound evidence for acute cholecystitis.
[2023-02-06] MEDS ORDERED: HYDROcodone/APAP 5-325MG 1 EACH TAB PO STA (14:22)
[2023-02-06] MEDS ORDERED: FAMOTIDINE 20 MG/2 ML VIAL IV STA (14:22)
[2023-02-06] MEDS ORDERED: ONDANSETRON 4 MG ODT STARTER PACK 2 TAB BTL PO STA (15:34)
[2023-02-06] MEDS ORDERED: IBUPROFEN 600 MG STARTER PACK 4 TAB BTL PO STA (15:34)
[2023-02-06] MEDS ORDERED: ACET/COD 300 MG/30 MG STARTER PACK 6 TAB BTL PO STA (15:34)
[2023-02-06 15:56] VITALS: BP 120/72; PULSE 72; RESP 18; TEMP 98.2
== END 2023-02-06 15:56 | disposition home or self-care (01) ==
LOC: EC 12:35
DX: K82.8 Other specified diseases of gallbladder (principal); G40.909 Epilepsy, unspecified, not intractable, without status epilepticus; Z79.82 Long term (current) use of aspirin; Z79.899 Other long term (current) drug therapy; Z88.0 Allergy status to penicillin; Z88.1 Allergy status to other antibiotic agents; Z88.2 Allergy status to sulfonamides; Z88.8 Allergy status to other drugs, medicaments and biological substances; Z91.018 Allergy to other foods
CPT/HCPCS: 36415; 80053; 82150; 83605; 83690; 85025; 84703; 76705; 99284; 96374; 96375 ×2; 96361; J2405; J1885; S0119

== ENCOUNTER → 2023-03-04 | Outpatient (CLI) | payer OTHER ==
[2023-03-04 09:10] LABS: ALT 14 U/L (4-34); AST 18 U/L (14-36); African American GFR (CKD) >90 (>60 ml/min/1.73 sqM); Albumin/Globulin Ratio 1.5; Alkaline Phosphatase 38 U/L (38-126); Anion Gap 6 mmol/L; Blood Urea Nitrogen 17 mg/dL (7-17); Calcium 8.8 mg/dL (8.4-10.2); Carbon Dioxide 27 mmol/L (22-30); Chloride 106 mmol/L (98-107); Globulin 2.7 g/dL; Glucose 94 mg/dL (74-99); Non-African American GFR(CKD) >90 (>60 ml/min/1.73 sqM); Potassium 4.5 mmol/L (3.5-5.1); Sodium 139 mmol/L (137-145); Total Bilirubin 1.7 mg/dL (0.2-1.3); Total Protein 6.7 g/dL (6.3-8.2)
[2023-03-04 10:13] LABS: Basophils % (A) 1 %; Eosinophils # (A) 0.1 k/uL (0-0.7); Eosinophils % (A) 2 %; HCT 38.1 % (34.0-46.0); HGB 12.9 gm/dL (11.4-16.0); Lymphocytes # (A) 1.5 k/uL (1.0-4.8); Lymphocytes % (A) 39 %; MCH 31.7 pg (25.0-35.0); MCV 93.3 fL (80.0-100.0); Mean Platelet Volume 7.9; Monocytes # (A) 0.2 k/uL (0-1.0); Monocytes % (A) 6 %; Neutrophils # (A) 1.9 k/uL (1.3-7.7); Neutrophils % (A) 51 %; Platelet Count 236 k/uL (150-450); RBC 4.08 m/uL (3.80-5.40); RDW 12.3 % (11.5-15.5); WBC 3.8 k/uL (3.8-10.6)
== END | disposition home or self-care (01) ==
LOC: LABWHC1 07:50
PROVIDERS: ATTEND Nurse Practitioner Family
DX: R10.11 Right upper quadrant pain (principal)
CPT/HCPCS: 36415; 80053; 85025

== ENCOUNTER → 2023-04-30 | Outpatient (CLI) | payer OTHER ==
--- NOTE | 2023-04-30 14:13 | US ---
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 No evidence for hernia. IMPRESSION: No evidence for hernia.
== END | disposition home or self-care (01) ==
LOC: RADUSWWP 12:42
PROVIDERS: ATTEND Internal Medicine
DX: K41.90 Unilateral femoral hernia, without obstruction or gangrene, not specified as recurrent (principal)

== ENCOUNTER 2023-12-10 09:15 | Emergency (ER) | payer OTHER ==
--- NOTE | 2023-12-10 09:38 | ED ---
Abdominal Pain HPI - General Chief Complaint: Abdominal Pain Stated Complaint: Abd pain, Back pain Time Seen by Provider: 12/10/23 09:36 Source: patient, RN notes reviewed Mode of arrival: ambulatory Limitations: no limitations - History of Present Illness Initial Comments: Patient is a 28-year-old female presented to the ER with a chief complaint of ri ght upper quadrant abdominal pain. She states this pain is sharp and radiates to her back. She also endorses nausea. She states the pain is usually worse after she eats. She recently underwent femoral hernia surgery in September 2023. She reports this right upper quadrant pain started last night and has just increased. Denies any vomiting, constipation/diarrhea or urinary complaints. She states she called her PCP who advised her to come to the ER for evaluation. Has been taking [id number] ibuprofen without relief. - Related Data Home Medications Medication Instructions Recorded Confirmed Folic Acid 1 mg PO BID 12/27/20 11/15/21 levETIRAcetam 1,000 mg PO BID 12/27/20 11/15/21 Aspirin EC [Ecotrin Low Dose] 81 mg PO DAILY 11/15/21 11/15/21 Cholecalciferol [Vitamin D3 (25 25 mcg PO DAILY 11/15/21 11/15/21 Mcg = 1000 Iu)] Docusate [Colace] 100 mg PO DAILY 11/15/21 11/15/21 Magnesium Oxide 400 mg PO DAILY 11/15/21 11/15/21 Vit No.180/Iron/Folic 1 tab PO DAILY 11/15/21 11/15/21 [ Plus Tablet] Ubidecarenone [Co Q-10] 200 mg PO DAILY 11/15/21 11/15/21 Previous Rx's Medication Instructions Recorded Ketorolac [Toradol] 10 mg PO Q6HR PRN #12 tab 02/06/23 Ondansetron Odt [Zofran Odt] 4 mg PO Q8HR PRN #15 tab 02/06/23 HYDROcodone/APAP 5-325MG [[place] 5] 1 each PO Q6HR PRN #12 tab 12/10/23 Omeprazole [PriLOSEC] 20 mg PO AC-BRKFST #30 cap 12/10/23 Ondansetron Odt [Zofran Odt] 4 mg PO Q8HR PRN #20 tab 12/10/23 Allergies Allergy/AdvReac Type Severity Reaction Status Date / Time metoclopramide [From Reglan] Allergy Unknown Unknown Verified 12/10/23 11:38 amoxicillin Allergy Rash/Hives Verified 02/06/23 12:48 dextromethorphan Allergy Rash/Hives Verified 02/06/23 12:48 [From Deconsal DM] Penicillins Allergy Rash/Hives Verified 02/06/23 12:48 phenylephrine Allergy Rash/Hives Verified 02/06/23 12:48 [From Deconsal DM] pyrilamine [From Deconsal DM] Allergy Rash/Hives Verified 02/06/23 12:48 raspberry Allergy Rash/Hives Verified 02/06/23 12:48 sulfamethoxazole Allergy Rash/Hives Verified 02/06/23 12:48 [From Bactrim] trimethoprim [From Bactrim] Allergy Rash/Hives Verified 12/10/23 09:21 vancomycin Allergy Rash/Hives Verified 12/10/23 09:21 Review of Systems ROS Statement: Those systems with pertinent positive or pertinent negative responses have been documented in the HPI. ROS Other: All systems not noted in ROS Statement are negative. Past Medical History Past Medical History: Seizure Disorder History of Any Multi-Drug Resistant Organisms: None Reported Past Surgical History: Hernia Repair, Orthopedic Surgery Additional Past Surgical History / Comment(s): Cyst removal Past Psychological History: No Psychological Hx Reported Smoking Status: Never smoker Past Alcohol Use History: Rare Past Drug Use History: None Reported General Exam Limitations: no limitations General appearance: alert, in no apparent distress Head exam: Present: atraumatic, normocephalic, normal inspection Eye exam: Present: normal appearance, PERRL, EOMI. Absent: scleral icterus, conjunctival injection, periorbital swelling ENT exam: Present: normal exam, mucous membranes moist Respiratory exam: Present: normal lung sounds bilaterally. Absent: respiratory distress, wheezes, rales, rhonchi, stridor Cardiovascular Exam: Present: regular rate, normal rhythm, normal heart sounds. Absent: systolic murmur, diastolic murmur, rubs, gallop, clicks GI/Abdominal exam: Present: soft, tenderness (Generalized no focal tenderness), normal bowel sounds Neurological exam: Present: alert, oriented X3, CN II-XII intact Psychiatric exam: Present: normal affect, normal mood Skin exam: Present: warm, dry, intact, normal color, other (Healing surgical incision right inguinal region). Absent: rash Course Vital Signs 12/10/23 12/10/23 12/10/23 09:16 11:31 13:52 Temperature 97.9 F 98.0 F Pulse Rate 71 53 L 57 L Respiratory 18 18 18 Rate Blood Pressure 115/75 104/67 101/66 O2 Sat by Pulse 100 100 100 Oximetry Medical Decision Making - Medical Decision Making Was pt. sent in by a medical professional or institution (, PA, GROUP INSURANCE SPECIAL AGENT, urgent care, hospital, or penitentiary...) When possible be specific @ -No Did you speak to anyone other than the patient for history (EMS, parent, family, police, friend...)? What history was obtained from this source @ -No Did you review nursing and triage notes (agree or disagree)? Why? @ -I reviewed and agree with nursing and triage notes Were old charts reviewed (outside hosp., previous admission, EMS record, old EKG, old radiological studies, urgent care reports/EKG's, penitentiary records)? Report findings @ -No old charts were reviewed Differential Diagnosis (chest pain, altered mental status, abdominal pain women, abdominal pain men, vaginal bleeding, weakness, fever, dyspnea, syncope, headache, dizziness, GI bleed, back pain, seizure, CVA, palpatations, mental health, musculoskeletal)? @ -Differential Abdominal Pain Women: Appendicitis, Cholecystitis, diverticulosis, ischemic bowel, pancreatitis, hepatitis, UTI, gastroenteritis, AAA, incarcerated hernia, bowel obstruction, constipation, inflammatory bowel, hepatitis, peptic ulcer disease, splenic infarction, perforated viscus, vulvitis, ovarian torsion, PID, kidney stone, placenta abruption, this is not meant to be an all-inclusive list EKG interpreted by me (3pts min.). @ -None X-rays interpreted by me (1pt min.). @ -None done CT interpreted by me (1pt min.). @ -CT abdomen pelvis negative for acute process. U/S interpreted by me (1pt. min.). @ -Gallbladder ultrasound significant for small hepatic cyst. Incomplete distention of the gallbladder may account for diffuse wall thickening. What testing was considered but not performed or refused? (CT, X-rays, U/S, labs)? Why? @ -None What meds were considered but not given or refused? Why? @ -None Did you discuss the management of the patient with other professionals (professionals i.e. , PA, GROUP INSURANCE SPECIAL AGENT, lab, RT, psych nurse, social professionals, consumer experience consultant, teacher, navy airspace officer, disease case manager)? Give summary @ -No Was smoking cessation discussed for >3mins.? @ -No Was critical care preformed (if so, how long)? @ -No Were there social determinants of health that impacted care today? How? (Homelessness, low income, unemployed, alcoholism, drug addiction, transportation, low edu. Level, literacy, decrease access to med. care, assisted, rehab)? @ -No Was there de-escalation of care discussed even if they declined (Discuss DNR or withdrawal of care, Hospice)? DNR status @ -No What co-morbidities impacted this encounter? (DM, HTN, Smoking, COPD, CAD, Cancer, CVA, ARF, Chemo, Hep., AIDS, mental health diagnosis, sleep apnea, morbid obesity)? @ -Patient recently underwent femoral hernia repair. Patient states she had multiple complications with the surgery. Was patient admitted / discharged? Hospital course, mention meds given and route, prescriptions, significant lab abnormalities, going to OR and other pertinent info. @ -Discharge. Patient is a 28-year-old female presented to the ER with a chief complaint of right upper quadrant abdominal pain with radiation to her back. History and physical exam completed. Vitals stable. Patient in no signs of acute distress and nontoxic-appearing. Mild generalized tenderness. No focal abdominal tenderness. Normal bowel sounds. Labs obtained unremarkable. Urine without signs of infection. Imaging negative for acute process. Symptomatic control achieved in the ER. Results discussed with patient and mother, at bedside, all questions answered. I had an extensive conversation about findings. Zofran, Prilosec, [place] prescribed. I advised close follow-up with GI. Referral given. Return parameters discussed. Patient discharged stable condition with follow-up to GI. Case discussed with ED attending, Dr. Merritt. Undiagnosed new problem with uncertain prognosis? @ -No Drug Therapy requiring intensive monitoring for toxicity (Heparin, Nitro, Insulin, Cardizem)? @ -No Were any procedures done? @ -No Diagnosis/symptom? @ -Biliary colic/abdominal pain Acute, or Chronic, or Acute on Chronic? @ -Acute Uncomplicated (without systemic symptoms) or Complicated (systemic symptoms)? @ -Uncomplicated Side effects of treatment? @ -No Exacerbation, Progression, or Severe Exacerbation? @ -No Poses a threat to life or bodily function? How? (Chest pain, USA, VT, pneumonia, PE, COPD, DKA, ARF, appy, cholecystitis, CVA, Diverticulitis, Homicidal, Suicidal, threat to staff... and all critical care pts) @ -No - Lab Data Result diagrams: 12/10/23 09:37 12/10/23 09:37 Lab Results 12/10/23 12/10/23 12/10/23 Range/Units 09:37 09:37 09:37 WBC 3.6 L (3.8-10.6) k/uL RBC 4.68 (3.80-5.40) m/uL Hgb 14.3 (11.4-16.0) gm/dL Hct 42.5 (34.0-46.0) % MCV 90.8 (80.0-100.0) fL MCH 30.7 (25.0-35.0) pg MCHC 33.8 (31.0-37.0) g/dL RDW 13.5 (11.5-15.5) % Plt Count 233 (150-450) k/uL MPV 7.8 Neutrophils % 63 % Lymphocytes % 25 % Monocytes % 8 % Eosinophils % 1 % Basophils % 1 % Neutrophils # 2.2 (1.3-7.7) k/uL Lymphocytes # 0.9 L (1.0-4.8) k/uL Monocytes # 0.3 (0-1.0) k/uL Eosinophils # 0.0 (0-0.7) k/uL Basophils # 0.0 (0-0.2) k/uL Sodium 141 (137-145) mmol/L Potassium 4.4 (3.5-5.1) mmol/L Chloride 105 (98-107) mmol/L Carbon Dioxide 27 (22-30) mmol/L Anion Gap 9 mmol/L BUN 12 (7-17) mg/dL Creatinine 0.75 (0.52-1.04) mg/dL Est GFR (CKD-EPI)AfAm >90 (>60 ml/min/1.73 sqM) Est GFR (CKD-EPI)NonAf >90 (>60 ml/min/1.73 sqM) Glucose 61 L (74-99) mg/dL Plasma Lactic Acid [place] (0.7-2.0) mmol/L Calcium 9.3 (8.4-10.2) mg/dL Total Bilirubin 1.3 (0.2-1.3) mg/dL AST 22 (14-36) U/L ALT 14 (4-34) U/L Alkaline Phosphatase 57 (38-126) U/L Total Protein 7.9 (6.3-8.2) g/dL Albumin 4.6 (3.5-5.0) g/dL Amylase 68 (30-110) U/L Lipase 90 (23-300) U/L Urine Color Urine Appearance (Clear) Urine pH (5.0-8.0) Ur Specific [place] (1.001-1.035) Urine Protein (Negative) Urine Glucose (UA) (Negative) Urine Ketones (Negative) Urine Blood (Negative) Urine Nitrite (Negative) Urine Bilirubin (Negative) Urine Urobilinogen (<2.0) mg/dL Ur Leukocyte Esterase (Negative) Urine HCG, Qual Not Detected (Not Detectd) 12/10/23 12/10/23 Range/Units 09:37 09:37 WBC (3.8-10.6) k/uL RBC (3.80-5.40) m/uL Hgb (11.4-16.0) gm/dL Hct (34.0-46.0) % MCV (80.0-100.0) fL MCH (25.0-35.0) pg MCHC (31.0-37.0) g/dL RDW (11.5-15.5) % Plt Count (150-450) k/uL MPV Neutrophils % % Lymphocytes % % Monocytes % % Eosinophils % % Basophils % % Neutrophils # (1.3-7.7) k/uL Lymphocytes # (1.0-4.8) k/uL Monocytes # (0-1.0) k/uL Eosinophils # (0-0.7) k/uL Basophils # (0-0.2) k/uL Sodium (137-145) mmol/L Potassium (3.5-5.1) mmol/L Chloride (98-107) mmol/L Carbon Dioxide (22-30) mmol/L Anion Gap mmol/L BUN (7-17) mg/dL Creatinine (0.52-1.04) mg/dL Est GFR (CKD-EPI)AfAm (>60 ml/min/1.73 sqM) Est GFR (CKD-EPI)NonAf (>60 ml/min/1.73 sqM) Glucose (74-99) mg/dL Plasma Lactic Acid [place] 1.0 (0.7-2.0) mmol/L Calcium (8.4-10.2) mg/dL Total Bilirubin (0.2-1.3) mg/dL AST (14-36) U/L ALT (4-34) U/L Alkaline Phosphatase (38-126) U/L Total Protein (6.3-8.2) g/dL Albumin (3.5-5.0) g/dL Amylase (30-110) U/L Lipase (23-300) U/L Urine Color Colorless Urine Appearance Clear (Clear) Urine pH 7.0 (5.0-8.0) Ur Specific [place] 1.017 (1.001-1.035) Urine Protein Negative (Negative) Urine Glucose (UA) Negative (Negative) Urine Ketones Negative (Negative) Urine Blood Negative (Negative) Urine Nitrite Negative (Negative) Urine Bilirubin Negative (Negative) Urine Urobilinogen <2.0 (<2.0) mg/dL Ur Leukocyte Esterase Negative (Negative) Urine HCG, Qual (Not Detectd) - Radiology Data Radiology results: report reviewed, image reviewed Disposition Clinical Impression: Right upper quadrant abdominal pain Disposition: HOME SELF-CARE Condition: Stable Instructions (If sedation given, give patient instructions): Peptic Ulcer (ED), Biliary Colic (ED) Additional Instructions: Please follow-up with GI, Dr. Macias. Return to the ER for any new or worsening concerns. Prescriptions: HYDROcodone/APAP 5-325MG [[place] 5] 1 each PO Q6HR PRN #12 tab PRN Reason: Pain Omeprazole [PriLOSEC] 20 mg PO AC-BRKFST #30 cap Ondansetron Odt [Zofran Odt] 4 mg PO Q8HR PRN #20 tab PRN Reason: Nausea Is patient prescribed a controlled substance at d/c from ED?: No Referrals: Miles Tam MD [Primary Care Provider] - 1-2 days Mikala Macias MD [STAFF PHYSICIAN] - 1-2 days Time of Disposition: 13:30
[2023-12-10] MEDS: SODIUM CHLORIDE 0.9% 1,000 ML IV STA ×2 (09:45→11:32)
[2023-12-10] MEDS: KETOROLAC 15 MG/ML 1 ML VIAL IVP STA (09:48)
[2023-12-10] MEDS: ONDANSETRON 4 MG/2 ML VIAL IVP STA ×2 (09:49→13:51)
[2023-12-10 09:56] VITALS: RESP 18
[2023-12-10 09:56] LABS: Appearance,Urine Clear (Clear); Bilirubin,Urine Negative (Negative); Blood,Urine Negative (Negative); Color,Urine Colorless; Glucose,Urine (UA) Negative (Negative); Ketones,Urine Negative (Negative); Leukocyte Esterase,Urine Negative (Negative); Nitrite,Urine Negative (Negative); Protein,Urine Negative (Negative); Specific Gravity,Urine 1.017 (1.001-1.035); Urobilinogen,Urine <2.0 mg/dL (<2.0)
[2023-12-10 10:13] LABS: Basophils % (A) 1 %; Eosinophils % (A) 1 %; HCT 42.5 % (34.0-46.0); HGB 14.3 gm/dL (11.4-16.0); Lymphocytes # (A) 0.9 k/uL (1.0-4.8); Lymphocytes % (A) 25 %; MCH 30.7 pg (25.0-35.0); MCHC 33.8 g/dL (31.0-37.0); MCV 90.8 fL (80.0-100.0); Mean Platelet Volume 7.8; Monocytes # (A) 0.3 k/uL (0-1.0); Monocytes % (A) 8 %; Neutrophils # (A) 2.2 k/uL (1.3-7.7); Neutrophils % (A) 63 %; Platelet Count 233 k/uL (150-450); RBC 4.68 m/uL (3.80-5.40); RDW 13.5 % (11.5-15.5); WBC 3.6 k/uL (3.8-10.6)
--- NOTE | 2023-12-10 10:18 | US ---
EXAMINATION TYPE: US gallbladder DATE OF EXAM: 12/10/2023 COMPARISON: NONE CLINICAL INDICATION: Female, 28 years old with history of RUQ pain; RUQ pain, back pain. Nausea TECHNIQUE: Multiple sonographic images of the right upper quadrant are obtained. FINDINGS: EXAM MEASUREMENTS: Liver Length: 14.8 cm Gallbladder Wall: 0.3 cm CBD: 0.3 cm Right Kidney: 10.6 x 3.6 x 3.9 cm Pancreas: wnl Liver: small anechoic area = 0.9 x 0.8 x 0.8cm appears as a simple cyst Gallbladder: no evidence of stones. Gallbladder wall thickening may be related to incomplete distent ion Evidence for sonographic Schumacher's sign: no CBD: appears wnl Right Kidney: no evidence of hydronephrosis IMPRESSION: 1. Small hepatic cyst. 2. Incomplete distention of the gallbladder may account for the apparent diffuse wall thickening gall bladder.
[2023-12-10 10:21] LABS: ALT 14 U/L (4-34); AST 22 U/L (14-36); African American GFR (CKD) >90 (>60 ml/min/1.73 sqM); Albumin 4.6 g/dL (3.5-5.0); Alkaline Phosphatase 57 U/L (38-126); Amylase 68 U/L (30-110); Anion Gap 9 mmol/L; Blood Urea Nitrogen 12 mg/dL (7-17); Calcium 9.3 mg/dL (8.4-10.2); Carbon Dioxide 27 mmol/L (22-30); Chloride 105 mmol/L (98-107); Glucose 61 mg/dL (74-99); Lipase 90 U/L (23-300); Non-African American GFR(CKD) >90 (>60 ml/min/1.73 sqM); Potassium 4.4 mmol/L (3.5-5.1); Sodium 141 mmol/L (137-145); Total Bilirubin 1.3 mg/dL (0.2-1.3); Total Protein 7.9 g/dL (6.3-8.2)
[2023-12-10] MEDS: MAG HYDROX/AL HYDROX/SIMETH 30 ML, HYOSCYAMINE ELIXIR 10 ML, LIDOCAINE VISCOUS 2% 10 ML PO STA (10:33)
[2023-12-10] MEDS: METOCLOPRAMIDE 5 MG/ML 2 ML VIAL IVP STA (11:32)
[2023-12-10] MEDS: HYDROmorphone 0.5 MG/0.5 ML SYRINGE IVP STA ×2 (11:34→13:49)
--- NOTE | 2023-12-10 12:50 | CT ---
EXAMINATION TYPE: CT abdomen pelvis w con CT DLP: mGycm, Automated exposure control for dose reduction was used. DATE OF EXAM: 12/10/2023 12:34 PM COMPARISON: CT abdomen pelvis most recent from CLINICAL INDICATION:Female, 28 years old with history of right abdominal pain; TECHNIQUE: Axial CT abdomen pelvis w con;Sagittal and coronal reformats were created on a separate w orkstation. Contrast used: 100 mL mL of Isovue 300 , (none if empty) Oral contrast used: (none if empty) FINDINGS: LOWER CHEST: Unremarkable ABDOMEN LIVER: Unremarkable GALLBLADDER AND BILE DUCTS: Unremarkable. PANCREAS: Unremarkable. SPLEEN: Unremarkable. ADRENAL GLANDS: Unremarkable. KIDNEYS AND URETERS: No evidence of hydronephrosis or renal calculus. The ureters are unremarkable. PELVIS BLADDER: Unremarkable REPRODUCTIVE: Unremarkable. ABDOMEN & PELVIS STOMACH AND BOWEL: Stomach and duodenum are unremarkable. No evidence of bowel obstruction. PERITONEUM/RETROPERITONEUM: No evidence of pneumoperitoneum. Trace free fluid suspected. Likely physi ologic VASCULATURE: No evidence of aortic aneurysm. MUSCULOSKELETAL: No acute osseous abnormalities LYMPH NODES: No gross evidence for lymphadenopathy. SOFT TISSUE/ABDOMINAL WALL: Unremarkable IMPRESSION: 1. No definite CT evidence of acute abdominal process.
[2023-12-10 14:15] VITALS: BP 101/66; PULSE 57; TEMP 98
== END 2023-12-10 13:56 | disposition home or self-care (01) ==
LOC: EC 09:15
DX: K76.89 Other specified diseases of liver (principal); K82.8 Other specified diseases of gallbladder; Z88.0 Allergy status to penicillin; Z88.1 Allergy status to other antibiotic agents; Z88.2 Allergy status to sulfonamides; Z88.8 Allergy status to other drugs, medicaments and biological substances
CPT/HCPCS: 36415; 80053; 82150; 83605; 83690; 85025; 81003; 81025; 76705; 74177; 99284; 96374; 96375 ×2; 96376 ×2; 96361 ×3; J2405; J1885; J1170; Q9967

== ENCOUNTER 2024-03-08 15:03 | Emergency (ER) | payer OTHER ==
[2024-03-08 15:09] VITALS: RESP 18
--- NOTE | 2024-03-08 15:46 | ED ---
Abdominal Pain HPI - General Chief Complaint: Abdominal Pain Stated Complaint: Abd/Back Pain Time Seen by Provider: 03/08/24 15:23 Source: patient, RN notes reviewed Mode of arrival: ambulatory Limitations: no limitations - History of Present Illness Initial Comments: 28-year-old female presenting with right upper quadrant pain x 3 hours. Describes the pain as intermittent pain that radiates into her right back. She also endorses nausea but denies vomiting. States she has had episodes of similar pain several times over the past 2 months. She has been to the ER for this several times where they had performed ultrasounds and CT scan of her abdom en which all returned negative. She followed up with a general surgeon who performed a HIDA scan which was negative. He recommended cholecystectomy as there is suspicion for biliary dyskinesia. Patient states she is hesitant to get surgery as they cannot find anything wrong. Patient called the surgeon's office today and they sent her here to rule out acute cholecystitis. Last bowel movement was this morning and was normal. Denies any urinary symptoms, , fever. - Related Data Home Medications Medication Instructions Recorded Confirmed Folic Acid 1 mg PO BID 12/27/20 11/15/21 levETIRAcetam 1,000 mg PO BID 12/27/20 11/15/21 Aspirin EC [Ecotrin Low Dose] 81 mg PO DAILY 11/15/21 11/15/21 Cholecalciferol [Vitamin D3 (25 25 mcg PO DAILY 11/15/21 11/15/21 Mcg = 1000 Iu)] Docusate [Colace] 100 mg PO DAILY 11/15/21 11/15/21 Magnesium Oxide 400 mg PO DAILY 11/15/21 11/15/21 Vit No.180/Iron/Folic 1 tab PO DAILY 11/15/21 11/15/21 [ Plus Tablet] Ubidecarenone [Co Q-10] 200 mg PO DAILY 11/15/21 11/15/21 Previous Rx's Medication Instructions Recorded Ketorolac [Toradol] 10 mg PO Q6HR PRN #12 tab 02/06/23 Ondansetron Odt [Zofran Odt] 4 mg PO Q8HR PRN #15 tab 02/06/23 HYDROcodone/APAP 5-325MG [[place] 5] 1 each PO Q6HR PRN #12 tab 12/10/23 Omeprazole [PriLOSEC] 20 mg PO AC-BRKFST #30 cap 12/10/23 Ondansetron Odt [Zofran Odt] 4 mg PO Q8HR PRN #20 tab 12/10/23 Allergies Allergy/AdvReac Type Severity Reaction Status Date / Time metoclopramide [From Reglan] Allergy Unknown Unknown Verified 12/10/23 11:38 amoxicillin Allergy Rash/Hives Verified 02/06/23 12:48 dextromethorphan Allergy Rash/Hives Verified 02/06/23 12:48 [From Deconsal DM] Penicillins Allergy Rash/Hives Verified 02/06/23 12:48 phenylephrine Allergy Rash/Hives Verified 02/06/23 12:48 [From Deconsal DM] pyrilamine [From Deconsal DM] Allergy Rash/Hives Verified 02/06/23 12:48 raspberry Allergy Rash/Hives Verified 02/06/23 12:48 sulfamethoxazole Allergy Rash/Hives Verified 02/06/23 12:48 [From Bactrim] trimethoprim [From Bactrim] Allergy Rash/Hives Verified 12/10/23 09:21 vancomycin Allergy Rash/Hives Verified 12/10/23 09:21 Review of Systems ROS Statement: Those systems with pertinent positive or pertinent negative responses have been documented in the HPI. ROS Other: All systems not noted in ROS Statement are negative. Past Medical History Past Medical History: Seizure Disorder History of Any Multi-Drug Resistant Organisms: None Reported Past Surgical History: Hernia Repair, Orthopedic Surgery Additional Past Surgical History / Comment(s): Cyst removal Past Psychological History: No Psychological Hx Reported Smoking Status: Never smoker Past Alcohol Use History: Rare Past Drug Use History: None Reported General Exam Limitations: no limitations General appearance: alert, in no apparent distress Respiratory exam: Present: normal lung sounds bilaterally. Absent: respiratory distress, wheezes, rales, rhonchi, stridor Cardiovascular Exam: Present: regular rate, normal rhythm, normal heart sounds. Absent: systolic murmur, diastolic murmur, rubs, gallop, clicks GI/Abdominal exam: Present: soft, tenderness (Mild right upper quadrant tenderness. Negative Schumacher sign), normal bowel sounds. Absent: distended, guarding, rebound, rigid Extremities exam: Present: normal inspection, full ROM, normal capillary refill. Absent: tenderness, pedal edema, joint swelling, calf tenderness Back exam: Present: normal inspection Psychiatric exam: Present: normal affect (Patient is tearful on exam), normal m ood Skin exam: Present: warm, dry, intact, normal color. Absent: rash Course Vital Signs 03/08/24 03/08/24 15:05 17:32 Temperature 97.6 F 98.2 F Pulse Rate 99 70 Respiratory 18 18 Rate Blood Pressure 136/84 112/72 O2 Sat by Pulse 98 100 Oximetry Medical Decision Making - Medical Decision Making Was pt. sent in by a medical professional or institution (, PA, HAM PUMPER, urgent care, hospital, or care home...) When possible be specific @ -No Did you speak to anyone other than the patient for history (EMS, parent, family, police, friend...)? What history was obtained from this source @ -No Did you review nursing and triage notes (agree or disagree)? Why? @ -I reviewed and agree with nursing and triage notes Were old charts reviewed (outside hosp., previous admission, EMS record, old EKG, old radiological studies, urgent care reports/EKG's, care home records)? Report findings @ -No old charts were reviewed Differential Diagnosis (chest pain, altered mental status, abdominal pain women, abdominal pain men, vaginal bleeding, weakness, fever, dyspnea, syncope, headache, dizziness, GI bleed, back pain, seizure, CVA, palpatations, mental h ealth, musculoskeletal)? @ -Differential Abdominal Pain Women: Appendicitis, Cholecystitis, diverticulosis, ischemic bowel, pancreatitis, hepatitis, UTI, gastroenteritis, AAA, incarcerated hernia, bowel obstruction, constipation, inflammatory bowel, hepatitis, peptic ulcer disease, splenic infarction, perforated viscus, vulvitis, ovarian torsion, PID, kidney stone, placenta abruption, this is not meant to be an all-inclusive list EKG interpreted by me (3pts min.). @ -None X-rays interpreted by me (1pt min.). @ -None done CT interpreted by me (1pt min.). @ -None done U/S interpreted by me (1pt. min.). @ -Ultrasound revealed no evidence for acute abdominal process, contracted gallbladder What testing was considered but not performed or refused? (CT, X-rays, U/S, labs)? Why? @ -None What meds were considered but not given or refused? Why? @ -None Did you discuss the management of the patient with other professionals (professionals i.e. , PA, HAM PUMPER, lab, RT, psych nurse, social media manager, dishwasher busser, teacher, zoology technical officer, family service caseworker)? Give summary @ -No Was smoking cessation discussed for >3mins.? @ -No Was critical care preformed (if so, how long)? @ -No Were there social determinants of health that impacted care today? How? (Homelessness, low income, unemployed, alcoholism, drug addiction, transportation, low edu. Level, literacy, decrease access to med. care, usp, rehab)? @ -No Was there de-escalation of care discussed even if they declined (Discuss DNR or withdrawal of care, Hospice)? DNR status @ -No What co-morbidities impacted this encounter? (DM, HTN, Smoking, COPD, CAD, Cancer, CVA, ARF, Chemo, Hep., AIDS, mental health diagnosis, sleep apnea, morbid obesity)? @ -None Was patient admitted / discharged? Hospital course, mention meds given and route, prescriptions, significant lab abnormalities, going to OR and other pertinent info. @ -Patient was discharged. Patient was seen and evaluated for right upper quadrant pain x 3 hours. Patient has history of similar pain and currently follows with surgeon who recommended cholecystectomy due to biliary dyskinesia. Patient's vitals are stable, no acute distress. Physical examination is remarkable for mild tenderness in right upper quadrant, negative Schumacher sign. Patient was given IV fluids as well as IV Toradol and Zofran. Lab work including CBC, CMP, lactic acid, lipase is unremarkable. Urine is unremarkable. Ultrasound reveals no evidence for acute abdominal process. Upon reevaluation, patient is requesting more pain medication at this time. Patient was given IV Dilaudid which mildly reduced pain. Discussed with patient that there does not appear to be any emergent etiology causing pain at this time. Strongly advise close follow-up with surgeon for further workup and probable cholecystectomy as recommended. Return/alarm symptoms discussed with patient and she shows understanding and agrees to plan. Case discussed with my attending Dr. Ruggiero. Patient discharged in stable condition. Undiagnosed new problem with uncertain prognosis? @ -No Drug Therapy requiring intensive monitoring for toxicity (Heparin, Nitro, Insulin, Cardizem)? @ -No Were any procedures done? @ -No Diagnosis/symptom? @ -Right upper quadrant abdominal pain Acute, or Chronic, or Acute on Chronic? @ -Acute Uncomplicated (without systemic symptoms) or Complicated (systemic symptoms)? @ -Uncomplicated Side effects of treatment? @ -No Exacerbation, Progression, or Severe Exacerbation? @ -No Poses a threat to life or bodily function? How? (Chest pain, [place], [place], pneumonia, PE, COPD, DKA, ARF, appy, cholecystitis, CVA, Diverticulitis, Homicidal, Suicidal, threat to staff... and all critical care pts) @ -Low likelihood - Lab Data Result diagrams: 03/08/24 15:47 03/08/24 15:47 Lab Results 03/08/24 03/08/24 03/08/24 Range/Units 15:47 15:47 15:47 WBC 6.2 (3.8-10.6) k/uL RBC 4.48 (3.80-5.40) m/uL Hgb 13.8 (11.4-16.0) gm/dL Hct 40.2 (34.0-46.0) % MCV 89.7 (80.0-100.0) fL MCH 30.9 (25.0-35.0) pg MCHC 34.4 (31.0-37.0) g/dL RDW 12.8 (11.5-15.5) % Plt Count 256 (150-450) k/uL MPV 8.4 Neutrophils % 57 % Lymphocytes % 32 % Monocytes % 7 % Eosinophils % 1 % Basophils % 2 % Neutrophils # 3.5 (1.3-7.7) k/uL Lymphocytes # 2.0 (1.0-4.8) k/uL Monocytes # 0.5 (0-1.0) k/uL Eosinophils # 0.1 (0-0.7) k/uL Basophils # 0.1 (0-0.2) k/uL Sodium (137-145) mmol/L Potassium (3.5-5.1) mmol/L Chloride (98-107) mmol/L Carbon Dioxide (22-30) mmol/L Anion Gap mmol/L BUN (7-17) mg/dL Creatinine (0.52-1.04) mg/dL Est GFR (CKD-EPI)AfAm (>60 ml/min/1.73 sqM) Est GFR (CKD-EPI)NonAf (>60 ml/min/1.73 sqM) Glucose (74-99) mg/dL Plasma Lactic Acid [place] (0.7-2.0) mmol/L Calcium (8.4-10.2) mg/dL Total Bilirubin (0.2-1.3) mg/dL AST (14-36) U/L ALT (4-34) U/L Alkaline Phosphatase (38-126) U/L Total Protein (6.3-8.2) g/dL Albumin (3.5-5.0) g/dL Lipase (23-300) U/L Urine Color Colorless Urine Appearance Cloudy H (Clear) Urine pH 7.5 (5.0-8.0) Ur Specific [place] 1.017 (1.001-1.035) Urine Protein Negative (Negative) Urine Glucose (UA) Negative (Negative) Urine Ketones Negative (Negative) Urine Blood Negative (Negative) Urine Nitrite Negative (Negative) Urine Bilirubin Negative (Negative) Urine Urobilinogen <2.0 (<2.0) mg/dL Ur Leukocyte Esterase Negative (Negative) Urine WBC 2 (0-5) /hpf Ur Squamous Epith Cells 11 H (0-4) /hpf Amorphous Sediment Occasional H (None) /hpf Urine Bacteria Occasional H (None) /hpf Urine Mucus Rare H (None) /hpf Urine HCG, Qual Not Detected (Not Detectd) 03/08/24 03/08/24 Range/Units 15:47 15:47 WBC (3.8-10.6) k/uL RBC (3.80-5.40) m/uL Hgb (11.4-16.0) gm/dL Hct (34.0-46.0) % MCV (80.0-100.0) fL MCH (25.0-35.0) pg MCHC (31.0-37.0) g/dL RDW (11.5-15.5) % Plt Count (150-450) k/uL MPV Neutrophils % % Lymphocytes % % Monocytes % % Eosinophils % % Basophils % % Neutrophils # (1.3-7.7) k/uL Lymphocytes # (1.0-4.8) k/uL Monocytes # (0-1.0) k/uL Eosinophils # (0-0.7) k/uL Basophils # (0-0.2) k/uL Sodium 140 (137-145) mmol/L Potassium 3.8 (3.5-5.1) mmol/L Chloride 106 (98-107) mmol/L Carbon Dioxide 26 (22-30) mmol/L Anion Gap 8 mmol/L BUN 13 (7-17) mg/dL Creatinine 0.72 (0.52-1.04) mg/dL Est GFR (CKD-EPI)AfAm >90 (>60 ml/min/1.73 sqM) Est GFR (CKD-EPI)NonAf >90 (>60 ml/min/1.73 sqM) Glucose 96 (74-99) mg/dL Plasma Lactic Acid [place] 1.4 (0.7-2.0) mmol/L Calcium 9.6 (8.4-10.2) mg/dL Total Bilirubin 1.2 (0.2-1.3) mg/dL AST 18 (14-36) U/L ALT 12 (4-34) U/L Alkaline Phosphatase 43 (38-126) U/L Total Protein 7.3 (6.3-8.2) g/dL Albumin 4.6 (3.5-5.0) g/dL Lipase 160 (23-300) U/L Urine Color Urine Appearance (Clear) Urine pH (5.0-8.0) Ur Specific [place] (1.001-1.035) Urine Protein (Negative) Urine Glucose (UA) (Negative) Urine Ketones (Negative) Urine Blood (Negative) Urine Nitrite (Negative) Urine Bilirubin (Negative) Urine Urobilinogen (<2.0) mg/dL Ur Leukocyte Esterase (Negative) Urine WBC (0-5) /hpf Ur Squamous Epith Cells (0-4) /hpf Amorphous Sediment (None) /hpf Urine Bacteria (None) /hpf Urine Mucus (None) /hpf Urine HCG, Qual (Not Detectd) Disposition Clinical Impression: Right upper quadrant abdominal pain Disposition: HOME SELF-CARE Condition: Stable Instructions (If sedation given, give patient instructions): Abdominal Pain (ED), Biliary Dyskinesia (DC) Additional Instructions: Please follow-up with surgeon for further evaluation. Please return to the Emergency Department if symptoms worsen or any other concerns. Is patient prescribed a controlled substance at d/c from ED?: No Referrals: Miles Tam MD [Primary Care Provider] - 1-2 days Time of Disposition: 17:52
[2024-03-08] MEDS: KETOROLAC 15 MG/ML 1 ML VIAL IVP STA (16:12)
[2024-03-08] MEDS: SODIUM CHLORIDE 0.9% 1,000 ML IV STA (16:12)
[2024-03-08] MEDS: ONDANSETRON 4 MG/2 ML VIAL IVP STA (16:12)
[2024-03-08 16:35] LABS: ALT 12 U/L (4-34); AST 18 U/L (14-36); African American GFR (CKD) >90 (>60 ml/min/1.73 sqM); Albumin 4.6 g/dL (3.5-5.0); Alkaline Phosphatase 43 U/L (38-126); Anion Gap 8 mmol/L; Blood Urea Nitrogen 13 mg/dL (7-17); Calcium 9.6 mg/dL (8.4-10.2); Carbon Dioxide 26 mmol/L (22-30); Chloride 106 mmol/L (98-107); Glucose 96 mg/dL (74-99); Lipase 160 U/L (23-300); Non-African American GFR(CKD) >90 (>60 ml/min/1.73 sqM); Potassium 3.8 mmol/L (3.5-5.1); Sodium 140 mmol/L (137-145); Total Bilirubin 1.2 mg/dL (0.2-1.3); Total Protein 7.3 g/dL (6.3-8.2)
[2024-03-08 16:47] LABS: Basophils # (A) 0.1 k/uL (0-0.2); Basophils % (A) 2 %; Eosinophils # (A) 0.1 k/uL (0-0.7); Eosinophils % (A) 1 %; HCT 40.2 % (34.0-46.0); HGB 13.8 gm/dL (11.4-16.0); Lymphocytes % (A) 32 %; MCH 30.9 pg (25.0-35.0); MCHC 34.4 g/dL (31.0-37.0); MCV 89.7 fL (80.0-100.0); Mean Platelet Volume 8.4; Monocytes # (A) 0.5 k/uL (0-1.0); Monocytes % (A) 7 %; Neutrophils # (A) 3.5 k/uL (1.3-7.7); Neutrophils % (A) 57 %; Platelet Count 256 k/uL (150-450); RBC 4.48 m/uL (3.80-5.40); RDW 12.8 % (11.5-15.5); WBC 6.2 k/uL (3.8-10.6)
[2024-03-08 17:19] LABS: Amorphous Sediment,Urine Occasional /hpf; Appearance,Urine Cloudy (Clear); Bacteria,Urine Occasional /hpf; Bilirubin,Urine Negative (Negative); Blood,Urine Negative (Negative); Color,Urine Colorless; Glucose,Urine (UA) Negative (Negative); Ketones,Urine Negative (Negative); Leukocyte Esterase,Urine Negative (Negative); Mucus,Urine Rare /hpf; Nitrite,Urine Negative (Negative); PH, Urine 7.5 (5.0-8.0); Protein,Urine Negative (Negative); Specific Gravity,Urine 1.017 (1.001-1.035); Squamous Epithelial Cell,Urine 11 /hpf (0-4); Urobilinogen,Urine <2.0 mg/dL (<2.0); WBC,Urine 2 /hpf (0-5)
--- NOTE | 2024-03-08 17:29 | US ---
EXAMINATION TYPE: US gallbladder DATE OF EXAM: 03/08/2024 COMPARISON: US and CT: 12/10/23 CLINICAL INDICATION: Female, 28 years old with history of RUQ pain; RUQ pain on and off but worse tod ay TECHNIQUE: Multiple sonographic images of the right upper quadrant are obtained. FINDINGS: EXAM MEASUREMENTS: Liver Length: 14.0 cm Gallbladder Wall: 0.2 cm CBD: 0.2 cm Right Kidney: 10.4 x 5.6 x 4.2 cm CHANNEL BUSINESS MANAGER NOTES: Pancreas: wnl Liver: wnl Gallbladder: contracted Evidence for sonographic Schumacher's sign: No CBD: wnl Right Kidney: wnl IMPRESSION: No evidence for acute abdominal process. Contracted gallbladder.
[2024-03-08] MEDS: HYDROmorphone 0.5 MG/0.5 ML SYRINGE IVP STA (17:31)
[2024-03-08 18:08] VITALS: BP 118/77; PULSE 72; TEMP 98.1
== END 2024-03-08 18:08 | disposition home or self-care (01) ==
LOC: EC 15:03
DX: R10.11 Right upper quadrant pain (principal); Z88.1 Allergy status to other antibiotic agents; Z88.0 Allergy status to penicillin; Z88.2 Allergy status to sulfonamides; Z88.8 Allergy status to other drugs, medicaments and biological substances; Z91.048 Other nonmedicinal substance allergy status
CPT/HCPCS: 36415; 80053; 83605; 83690; 85025; 81001; 81025; 76705; 99284; 96374; 96375 ×2; 96361; J2405; J1885; J1170

== ENCOUNTER 2024-03-26 23:36 | Emergency (ER) | payer OTHER ==
[2024-03-26 23:48] VITALS: RESP 18; TEMP 98
--- NOTE | 2024-03-27 01:15 | ED ---
General Adult HPI - General Chief complaint: Recheck/Abnormal Lab/Rx Stated complaint: Upper Quadrant Pain, Nausea, Lower ABD Pain Time Seen by Provider: 03/27/24 00:21 Source: patient, RN notes reviewed Mode of arrival: ambulatory Limitations: no limitations - History of Present Illness Initial comments: 28-year-old female presents to the emergency department for evaluation of abdominal pain. Patient states that the pain is in the right upper quadrant and radiates to her back. She does state that she has been experiencing issues with her gallbladder and is scheduled for surgery on . She states that this is scheduled with Dr. Garcia with [facility]. She reports that today the pain came on around 6 PM and she took a [place] at home with no relief. She admits to nausea without vomiting. Denies changes in her urinary or bowel habits. - Related Data Home Medications Medication Instructions Recorded Confirmed Folic Acid 1 mg PO BID 12/27/20 11/15/21 levETIRAcetam 1,000 mg PO BID 12/27/20 11/15/21 Aspirin EC [Ecotrin Low Dose] 81 mg PO DAILY 11/15/21 11/15/21 Cholecalciferol [Vitamin D3 (25 25 mcg PO DAILY 11/15/21 11/15/21 Mcg = 1000 Iu)] Docusate [Colace] 100 mg PO DAILY 11/15/21 11/15/21 Magnesium Oxide 400 mg PO DAILY 11/15/21 11/15/21 Vit No.180/Iron/Folic 1 tab PO DAILY 11/15/21 11/15/21 [ Plus Tablet] Ubidecarenone [Co Q-10] 200 mg PO DAILY 11/15/21 11/15/21 Previous Rx's Medication Instructions Recorded Ketorolac [Toradol] 10 mg PO Q6HR PRN #12 tab 02/06/23 Ondansetron Odt [Zofran Odt] 4 mg PO Q8HR PRN #15 tab 02/06/23 HYDROcodone/APAP 5-325MG [[place] 5] 1 each PO Q6HR PRN #12 tab 12/10/23 Omeprazole [PriLOSEC] 20 mg PO AC-BRKFST #30 cap 12/10/23 Ondansetron Odt [Zofran Odt] 4 mg PO Q8HR PRN #20 tab 12/10/23 Allergies Allergy/AdvReac Type Severity Reaction Status Date / Time metoclopramide [From Reglan] Allergy Unknown Unknown Verified 03/26/24 23:48 amoxicillin Allergy Rash/Hives Verified 03/26/24 23:48 dextromethorphan Allergy Rash/Hives Verified 03/26/24 23:48 [From Deconsal DM] Penicillins Allergy Rash/Hives Verified 03/26/24 23:48 phenylephrine Allergy Rash/Hives Verified 03/26/24 23:48 [From Deconsal DM] pyrilamine [From Deconsal DM] Allergy Rash/Hives Verified 03/26/24 23:48 raspberry Allergy Rash/Hives Verified 03/26/24 23:48 sulfamethoxazole Allergy Rash/Hives Verified 03/26/24 23:48 [From Bactrim] trimethoprim [From Bactrim] Allergy Rash/Hives Verified 03/26/24 23:48 vancomycin Allergy Rash/Hives Verified 03/26/24 23:48 Review of Systems ROS Statement: Those systems with pertinent positive or pertinent negative responses have been documented in the HPI. ROS Other: All systems not noted in ROS Statement are negative. Past Medical History Past Medical History: Seizure Disorder History of Any Multi-Drug Resistant Organisms: None Reported Past Surgical History: Hernia Repair, Orthopedic Surgery Additional Past Surgical History / Comment(s): Cyst removal Past Psychological History: No Psychological Hx Reported Smoking Status: Never smoker Past Alcohol Use History: Rare Past Drug Use History: None Reported General Exam Limitations: no limitations General appearance: alert, in no apparent distress Head exam: Present: atraumatic, normocephalic, normal inspection Eye exam: Present: normal appearance, PERRL, EOMI. Absent: scleral icterus, conjunctival injection, periorbital swelling ENT exam: Present: normal exam, mucous membranes moist Respiratory exam: Present: normal lung sounds bilaterally. Absent: respiratory distress, wheezes, rales, rhonchi, stridor Cardiovascular Exam: Present: regular rate, normal rhythm, normal heart sounds. Absent: systolic murmur, diastolic murmur, rubs, gallop, clicks GI/Abdominal exam: Present: soft, normal bowel sounds. Absent: distended, tenderness, guarding, rebound, rigid Extremities exam: Present: normal inspection, full ROM, normal capillary refill. Absent: tenderness, pedal edema, joint swelling, calf tenderness Back exam: Present: normal inspection. Absent: CVA tenderness (R), CVA tenderness (L) Neurological exam: Present: alert, oriented X3 Psychiatric exam: Present: normal affect, normal mood Skin exam: Present: warm, dry, intact, normal color. Absent: rash Course Vital Signs 03/26/24 03/27/24 03/27/24 23:47 01:18 02:37 Temperature 98 F Pulse Rate 86 79 70 Respiratory 18 18 18 Rate Blood Pressure 125/88 102/65 101/57 O2 Sat by Pulse 96 99 98 Oximetry 03/27/24 03:21 Temperature Pulse Rate 68 Respiratory 18 Rate Blood Pressure 97/56 O2 Sat by Pulse 100 Oximetry Medical Decision Making - Medical Decision Making Was pt. sent in by a medical professional or institution (ROBERTO Howard, DERMATOLOGY TEACHER, urgent care, hospital, or [facility]...) When possible be specific @ -No Did you speak to anyone other than the patient for history (EMS, parent, family, police, friend...)? What history was obtained from this source @ -No Did you review nursing and triage notes (agree or disagree)? Why? @ -I reviewed and agree with nursing and triage notes Were old charts reviewed (outside hosp., previous admission, EMS record, old EKG, old radiological studies, urgent care reports/EKG's, [facility] records)? Report findings @ -No old charts were reviewed Differential Diagnosis (chest pain, altered mental status, abdominal pain women, abdominal pain men, vaginal bleeding, weakness, fever, dyspnea, syncope, headache, dizziness, GI bleed, back pain, seizure, CVA, palpatations, mental health, musculoskeletal)? @ -Differential Abdominal Pain Women: Appendicitis, Cholecystitis, diverticulosis, ischemic bowel, pancreatitis, hepatitis, UTI, gastroenteritis, AAA, incarcerated hernia, bowel obstruction, constipation, inflammatory bowel, hepatitis, peptic ulcer disease, splenic infarction, perforated viscus, vulvitis, ovarian torsion, PID, kidney stone, placenta abruption, this is not meant to be an all-inclusive list EKG interpreted by me (3pts min.). @ -None X-rays interpreted by me (1pt min.). @ -None done CT interpreted by me (1pt min.). @ -None done U/S interpreted by me (1pt. min.). @ -None done What testing was considered but not performed or refused? (CT, X-rays, U/S, labs)? Why? @ -None What meds were considered but not given or refused? Why? @ -None Did you discuss the management of the patient with other professionals (professionals i.e. , PA, DERMATOLOGY TEACHER, lab, RT, psych nurse, forensic social worker, marketing analytics analyst, teacher, fundraising officer, family service caseworker)? Give summary @ -No Was smoking cessation discussed for >3mins.? @ -No Was critical care preformed (if so, how long)? @ -No Were there social determinants of health that impacted care today? How? (Homelessness, low income, unemployed, alcoholism, drug addiction, transportation, low edu. Level, literacy, decrease access to med. care, fci, rehab)? @ -No Was there de-escalation of care discussed even if they declined (Discuss DNR or withdrawal of care, Hospice)? DNR status @ -No What co-morbidities impacted this encounter? (DM, HTN, Smoking, COPD, CAD, Cancer, CVA, ARF, Chemo, Hep., AIDS, mental health diagnosis, sleep apnea, morbid obesity)? @ -None Was patient admitted / discharged? Hospital course, mention meds given and route, prescriptions, significant lab abnormalities, going to OR and other pertinent info. @ -Discharge. Patient presented to the emergency department for evaluation of abdominal pain in the right upper quadrant radiating to her back. She states that she has experienced this in the past. She is scheduled for cholecystectomy upcoming. Laboratory studies obtained.CBC shows no significant leukocytosis; LFTs within normal limits. UA shows no evidence of infectious process, negative urine hCG. Patient was provided analgesia while in the emergency department and IV fluids. She reports improvement in her symptoms following this. She will be discharged home and advised to follow-up with her surgeon as scheduled. Patient stable at time of discharge. Case discussed with Dr. Arias Undiagnosed new problem with uncertain prognosis? @ -No Drug Therapy requiring intensive monitoring for toxicity (Heparin, Nitro, Insulin, Cardizem)? @ -No Were any procedures done? @ -No Diagnosis/symptom? @ -Abdominal pain Acute, or Chronic, or Acute on Chronic? @ -acute Uncomplicated (without systemic symptoms) or Complicated (systemic symptoms)? @ -uncomplicated Side effects of treatment? @ -No Exacerbation, Progression, or Severe Exacerbation? @ -No Poses a threat to life or bodily function? How? (Chest pain, [place], [place], pneumonia, PE, COPD, DKA, ARF, appy, cholecystitis, CVA, Diverticulitis, Homicidal, Suicidal, threat to staff... and all critical care pts) @ -No - Lab Data Result diagrams: 03/27/24 01:10 03/27/24 01:10 Lab Results 03/27/24 03/27/24 03/27/24 Range/Units 01:10 01:10 01:10 WBC 5.4 (3.8-10.6) k/uL RBC 4.06 (3.80-5.40) m/uL Hgb 13.0 (11.4-16.0) gm/dL Hct 37.9 (34.0-46.0) % MCV 93.2 (80.0-100.0) fL MCH 32.1 (25.0-35.0) pg MCHC 34.4 (31.0-37.0) g/dL RDW 12.5 (11.5-15.5) % Plt Count 260 (150-450) k/uL MPV 7.7 Neutrophils % 59 % Lymphocytes % 31 % Monocytes % 6 % Eosinophils % 2 % Basophils % 1 % Neutrophils # 3.2 (1.3-7.7) k/uL Lymphocytes # 1.7 (1.0-4.8) k/uL Monocytes # 0.3 (0-1.0) k/uL Eosinophils # 0.1 (0-0.7) k/uL Basophils # 0.1 (0-0.2) k/uL Sodium 137 (137-145) mmol/L Potassium 3.9 (3.5-5.1) mmol/L Chloride 107 (98-107) mmol/L Carbon Dioxide 22 (22-30) mmol/L Anion Gap 8 mmol/L BUN 21 H (7-17) mg/dL Creatinine 0.72 (0.52-1.04) mg/dL Est GFR (CKD-EPI)AfAm >90 (>60 ml/min/1.73 sqM) Est GFR (CKD-EPI)NonAf >90 (>60 ml/min/1.73 sqM) Glucose 94 (74-99) mg/dL Plasma Lactic Acid Jean [place] 0.7 (0.7-2.0) mmol/L Calcium 9.0 (8.4-10.2) mg/dL Total Bilirubin 1.5 H (0.2-1.3) mg/dL AST 23 (14-36) U/L ALT 10 (4-34) U/L Alkaline Phosphatase 38 (38-126) U/L Total Protein 6.5 (6.3-8.2) g/dL Albumin 4.1 (3.5-5.0) g/dL Amylase 55 (30-110) U/L Lipase 96 (23-300) U/L Urine Color Urine Appearance (Clear) Urine pH (5.0-8.0) Ur Specific [place] (1.001-1.035) Urine Protein (Negative) Urine Glucose (UA) (Negative) Urine Ketones (Negative) Urine Blood (Negative) Urine Nitrite (Negative) Urine Bilirubin (Negative) Urine Urobilinogen (<2.0) mg/dL Ur Leukocyte Esterase (Negative) Urine HCG, Qual (Not Detectd) 03/27/24 03/27/24 Range/Units 02:11 02:11 WBC (3.8-10.6) k/uL RBC (3.80-5.40) m/uL Hgb (11.4-16.0) gm/dL Hct (34.0-46.0) % MCV (80.0-100.0) fL MCH (25.0-35.0) pg MCHC (31.0-37.0) g/dL RDW (11.5-15.5) % Plt Count (150-450) k/uL MPV Neutrophils % % Lymphocytes % % Monocytes % % Eosinophils % % Basophils % % Neutrophils # (1.3-7.7) k/uL Lymphocytes # (1.0-4.8) k/uL Monocytes # (0-1.0) k/uL Eosinophils # (0-0.7) k/uL Basophils # (0-0.2) k/uL Sodium (137-145) mmol/L Potassium (3.5-5.1) mmol/L Chloride (98-107) mmol/L Carbon Dioxide (22-30) mmol/L Anion Gap mmol/L BUN (7-17) mg/dL Creatinine (0.52-1.04) mg/dL Est GFR (CKD-EPI)AfAm (>60 ml/min/1.73 sqM) Est GFR (CKD-EPI)NonAf (>60 ml/min/1.73 sqM) Glucose (74-99) mg/dL Plasma Lactic Acid [place] (0.7-2.0) mmol/L Calcium (8.4-10.2) mg/dL Total Bilirubin (0.2-1.3) mg/dL AST (14-36) U/L ALT (4-34) U/L Alkaline Phosphatase (38-126) U/L Total Protein (6.3-8.2) g/dL Albumin (3.5-5.0) g/dL Amylase (30-110) U/L Lipase (23-300) U/L Urine Color Colorless Urine Appearance Clear (Clear) Urine pH 6.5 (5.0-8.0) Ur Specific [place] 1.011 (1.001-1.035) Urine Protein Negative (Negative) Urine Glucose (UA) Negative (Negative) Urine Ketones Negative (Negative) Urine Blood Negative (Negative) Urine Nitrite Negative (Negative) Urine Bilirubin Negative (Negative) Urine Urobilinogen <2.0 (<2.0) mg/dL Ur Leukocyte Esterase Negative (Negative) Urine HCG, Qual Not Detected (Not Detectd) Disposition Clinical Impression: Abdominal pain Disposition: HOME SELF-CARE Condition: Stable Instructions (If sedation given, give patient instructions): Abdominal Pain ( ED) Additional Instructions: Please follow up with your surgeon as scheduled. Return to the emergency department for new or worsening symptoms. Is patient prescribed a controlled substance at d/c from ED?: No Referrals: Miles Tam MD [Primary Care Provider] - 1-2 days
[2024-03-27] MEDS: ONDANSETRON 4 MG/2 ML VIAL IVP STA (01:16)
[2024-03-27] MEDS: SODIUM CHLORIDE 0.9% 1,000 ML IV STA (01:17)
[2024-03-27] MEDS: KETOROLAC 15 MG/ML 1 ML VIAL IVP STA (01:17)
[2024-03-27] MEDS: HYDROmorphone 0.5 MG/0.5 ML SYRINGE IVP STA (01:20)
[2024-03-27 01:23] LABS: Basophils # (A) 0.1 k/uL (0-0.2); Basophils % (A) 1 %; Eosinophils # (A) 0.1 k/uL (0-0.7); Eosinophils % (A) 2 %; HCT 37.9 % (34.0-46.0); Lymphocytes # (A) 1.7 k/uL (1.0-4.8); Lymphocytes % (A) 31 %; MCH 32.1 pg (25.0-35.0); MCHC 34.4 g/dL (31.0-37.0); MCV 93.2 fL (80.0-100.0); Mean Platelet Volume 7.7; Monocytes # (A) 0.3 k/uL (0-1.0); Monocytes % (A) 6 %; Neutrophils # (A) 3.2 k/uL (1.3-7.7); Neutrophils % (A) 59 %; Platelet Count 260 k/uL (150-450); RBC 4.06 m/uL (3.80-5.40); RDW 12.5 % (11.5-15.5); WBC 5.4 k/uL (3.8-10.6)
[2024-03-27 01:38] LABS: ALT 10 U/L (4-34); AST 23 U/L (14-36); African American GFR (CKD) >90 (>60 ml/min/1.73 sqM); Albumin 4.1 g/dL (3.5-5.0); Alkaline Phosphatase 38 U/L (38-126); Amylase 55 U/L (30-110); Anion Gap 8 mmol/L; Blood Urea Nitrogen 21 mg/dL (7-17); Carbon Dioxide 22 mmol/L (22-30); Chloride 107 mmol/L (98-107); Glucose 94 mg/dL (74-99); Lipase 96 U/L (23-300); Non-African American GFR(CKD) >90 (>60 ml/min/1.73 sqM); Potassium 3.9 mmol/L (3.5-5.1); Sodium 137 mmol/L (137-145); Total Bilirubin 1.5 mg/dL (0.2-1.3); Total Protein 6.5 g/dL (6.3-8.2)
[2024-03-27] MEDS: HYDROmorphone 1 MG/ML 1 ML SYRINGE IVP STA (02:37)
[2024-03-27 02:49] LABS: Appearance,Urine Clear (Clear); Bilirubin,Urine Negative (Negative); Blood,Urine Negative (Negative); Color,Urine Colorless; Glucose,Urine (UA) Negative (Negative); Ketones,Urine Negative (Negative); Leukocyte Esterase,Urine Negative (Negative); Nitrite,Urine Negative (Negative); PH, Urine 6.5 (5.0-8.0); Protein,Urine Negative (Negative); Specific Gravity,Urine 1.011 (1.001-1.035); Urobilinogen,Urine <2.0 mg/dL (<2.0)
[2024-03-27 03:22] VITALS: BP 97/56; PULSE 68
== END 2024-03-27 03:23 | disposition home or self-care (01) ==
LOC: EC 23:36
DX: R10.11 Right upper quadrant pain (principal); Z88.0 Allergy status to penicillin; Z88.8 Allergy status to other drugs, medicaments and biological substances; Z88.1 Allergy status to other antibiotic agents; Z88.2 Allergy status to sulfonamides; Z91.018 Allergy to other foods
CPT/HCPCS: 36415; 80053; 82150; 83605; 83690; 85025; 81003; 81025; 99284; 96374; 96375 ×2; 96376; 96361 ×2; J2405; J1170 ×2; J1885

== ENCOUNTER 2024-04-03 22:37 | Emergency (ER) | payer OTHER ==
[2024-04-03 22:51] VITALS: PULSE 61; TEMP 97.9
[2024-04-03 23:30] LABS: Appearance,Urine Cloudy (Clear); Bacteria,Urine Rare /hpf; Bilirubin,Urine 2+ (Negative); Blood,Urine Trace (Negative); Color,Urine Dark Brown; Glucose,Urine (UA) Negative (Negative); Ketones,Urine Negative (Negative); Leukocyte Esterase,Urine Negative (Negative); Mucus,Urine Rare /hpf; Nitrite,Urine Positive (Negative); Protein,Urine 1+ (Negative); RBC,Urine 9 /hpf (0-5); Specific Gravity,Urine 1.017 (1.001-1.035); Squamous Epithelial Cell,Urine 10 /hpf (0-4); WBC,Urine 56 /hpf (0-5)
[2024-04-03] MEDS: SODIUM CHLORIDE 0.9% 1,000 ML IV STA (23:34)
[2024-04-03 23:44] LABS: Basophils % (A) 0 %; Eosinophils # (A) 0.1 k/uL (0-0.7); Eosinophils % (A) 1 %; HCT 33.3 % (34.0-46.0); HGB 11.4 gm/dL (11.4-16.0); Lymphocytes # (A) 1.3 k/uL (1.0-4.8); Lymphocytes % (A) 25 %; MCH 31.9 pg (25.0-35.0); MCHC 34.1 g/dL (31.0-37.0); MCV 93.5 fL (80.0-100.0); Monocytes # (A) 0.4 k/uL (0-1.0); Monocytes % (A) 7 %; Neutrophils # (A) 3.4 k/uL (1.3-7.7); Neutrophils % (A) 66 %; Platelet Count 222 k/uL (150-450); RBC 3.56 m/uL (3.80-5.40); RDW 12.6 % (11.5-15.5); WBC 5.1 k/uL (3.8-10.6)
[2024-04-03] MEDS: ONDANSETRON 4 MG/2 ML VIAL IVP STA (23:53)
[2024-04-03] MEDS: KETOROLAC 15 MG/ML 1 ML VIAL IVP STA (23:54)
[2024-04-03] MEDS: MORPHINE SULFATE 4 MG/ML SYRINGE IVP STA (23:54)
[2024-04-04 00:13] LABS: ALT 72 U/L (4-34); AST 36 U/L (14-36); African American GFR (CKD) >90 (>60 ml/min/1.73 sqM); Alkaline Phosphatase 57 U/L (38-126); Anion Gap 5 mmol/L; Blood Urea Nitrogen 6 mg/dL (7-17); Carbon Dioxide 29 mmol/L (22-30); Chloride 103 mmol/L (98-107); Glucose 114 mg/dL (74-99); Non-African American GFR(CKD) >90 (>60 ml/min/1.73 sqM); Potassium 4.2 mmol/L (3.5-5.1); Sodium 137 mmol/L (137-145); Total Bilirubin 1.8 mg/dL (0.2-1.3); Total Protein 6.4 g/dL (6.3-8.2)
--- NOTE | 2024-04-04 00:39 | ED ---
Female Urogenital HPI - General Chief complaint: Urogenital Stated complaint: UTI, Back Pain Time Seen by Provider: 04/03/24 22:52 Source: patient, RN notes reviewed Mode of arrival: ambulatory Limitations: no limitations - History of Present Illness Initial comments: This is a 28-year-old female who presents to the emergency department for a UTI and back pain. Patient states that she had her gallbladder out 3 days ago and 2 days ago started to get burning with urination. She went to urgent care earlier today and was diagnosed with a UTI. They sent in a prescription for antibiotics, however the pharmacy would not give them to her as it was an an tibiotic she is allergic to. States that over the last 1 hour she started to develop pain in the right flank with associated nausea. She tried taking her [place] and ibuprofen but did not have any relief. Denies any history of kidney stones. MD Complaint: dysuria - Related Data Home Medications Medication Instructions Recorded Confirmed Folic Acid 1 mg PO BID 12/27/20 11/15/21 levETIRAcetam 1,000 mg PO BID 12/27/20 11/15/21 Aspirin EC [Ecotrin Low Dose] 81 mg PO DAILY 11/15/21 11/15/21 Cholecalciferol [Vitamin D3 (25 25 mcg PO DAILY 11/15/21 11/15/21 Mcg = 1000 Iu)] Docusate [Colace] 100 mg PO DAILY 11/15/21 11/15/21 Magnesium Oxide 400 mg PO DAILY 11/15/21 11/15/21 Vit No.180/Iron/Folic 1 tab PO DAILY 11/15/21 11/15/21 [ Plus Tablet] Ubidecarenone [Co Q-10] 200 mg PO DAILY 11/15/21 11/15/21 Previous Rx's Medication Instructions Recorded Ketorolac [Toradol] 10 mg PO Q6HR PRN #12 tab 02/06/23 Ondansetron Odt [Zofran Odt] 4 mg PO Q8HR PRN #15 tab 02/06/23 HYDROcodone/APAP 5-325MG [[place] 5] 1 each PO Q6HR PRN #12 tab 12/10/23 Omeprazole [PriLOSEC] 20 mg PO AC-BRKFST #30 cap 12/10/23 Ondansetron Odt [Zofran Odt] 4 mg PO Q8HR PRN #20 tab 12/10/23 Ketorolac [Toradol] 10 mg PO Q6HR PRN #15 tab 04/04/24 Levofloxacin [Levaquin] 750 mg PO DAILY 5 Days #5 tab 04/04/24 Ondansetron Odt [Zofran Odt] 4 mg PO Q8HR PRN #20 tab 04/04/24 Allergies Allergy/AdvReac Type Severity Reaction Status Date / Time metoclopramide [From Reglan] Allergy Unknown Unknown Verified 04/03/24 22:51 amoxicillin Allergy Rash/Hives Verified 04/03/24 22:51 dextromethorphan Allergy Rash/Hives Verified 04/03/24 22:51 [From Deconsal DM] Penicillins Allergy Rash/Hives Verified 04/03/24 22:51 phenylephrine Allergy Rash/Hives Verified 04/03/24 22:51 [From Deconsal DM] pyrilamine [From Deconsal DM] Allergy Rash/Hives Verified 04/03/24 22:51 raspberry Allergy Rash/Hives Verified 04/03/24 22:51 sulfamethoxazole Allergy Rash/Hives Verified 04/03/24 22:51 [From Bactrim] trimethoprim [From Bactrim] Allergy Rash/Hives Verified 04/03/24 22:51 vancomycin Allergy Rash/Hives Verified 04/03/24 22:51 Review of Systems ROS Statement: Those systems with pertinent positive or pertinent negative responses have been documented in the HPI. ROS Other: All systems not noted in ROS Statement are negative. Past Medical History Past Medical History: Seizure Disorder History of Any Multi-Drug Resistant Organisms: None Reported Past Surgical History: Cholecystectomy, Hernia Repair, Orthopedic Surgery Additional Past Surgical History / Comment(s): Cyst removal Past Psychological History: No Psychological Hx Reported Smoking Status: Never smoker Past Alcohol Use History: Rare Past Drug Use History: None Reported General Exam Limitations: no limitations General appearance: alert, in no apparent distress Head exam: Present: atraumatic, normocephalic, normal inspection Respiratory exam: Present: normal lung sounds bilaterally. Absent: respiratory distress, wheezes, rales, rhonchi, stridor Cardiovascular Exam: Present: regular rate, normal rhythm, normal heart sounds. Absent: systolic murmur, diastolic murmur, rubs, gallop, clicks GI/Abdominal exam: Present: soft, normal bowel sounds. Absent: distended, tenderness, guarding, rebound, rigid Back exam: Present: CVA tenderness (R). Absent: CVA tenderness (L) Neurological exam: Present: alert, oriented X3, CN II-XII intact Psychiatric exam: Present: normal affect, normal mood Skin exam: Present: warm, dry, intact, normal color. Absent: rash Course Vital Signs 04/03/24 04/04/24 22:43 01:59 Temperature 97.9 F Pulse Rate 61 61 Respiratory 16 20 Rate Blood Pressure 122/79 129/81 O2 Sat by Pulse 100 99 Oximetry Medical Decision Making - Medical Decision Making This is a 28 year old female who presents to the emergency department for dysuria and back pain. Was pt. sent in by a medical professional or institution? @ -No Did you speak to anyone other than the patient for history? @ -No Did you review nursing and triage notes? @ -Yes, and I agree, it is accurate with regards to the patient's symptoms. Were old charts reviewed? @ -No Differential Diagnosis? @ -Differential Back Pain: Strain, zoster, cauda equina syndrome, epidural abscess, vertebral osteomyelitis, discitis, fracture, subluxation, disc herniation, DJD, spinal stenosis, dissection, AAA, pancreatitis, peptic ulcer disease, pyelonephritis, kidney stone, this is not meant to be an all-inclusive list. EKG interpreted by me (3pts min.)? @ -Not obtained X-rays interpreted by me (1pt min.)? @ -Not obtained CT interpreted by me (1pt min.)? @ -CT scan of the abdomen and pelvis obtained. My interpretation identifies no evidence of a ureteral calculus. U/S interpreted by me (1pt. min.)? @ -Not obtained What testing was considered but not performed? (CT, X-rays, U/S, labs)? Why? @ -None What meds were considered but not given? Why? @ -None Did you discuss the management of the patient with other professionals? @ -No Did you reconcile home meds? @ -No Was smoking cessation discussed for >3mins.? @ -No Was critical care preformed (if so, how long)? @ -No Were there social determinants of health that impacted care today? How? (Homelessness, low income, unemployed, alcoholism, drug addiction, transportation, low edu. Level, literacy, decrease access to med. care, long term, rehab)? @ -No Was there de-escalation of care discussed even if they declined? (Discuss DNR or withdrawal of care, Hospice)? @ -No What co-morbidities impacted this encounter? (DM, HTN, Smoking, COPD, CAD, Cancer, CVA, Hep., AIDS, mental health diagnosis, sleep apnea, morbid obesity)? @ -None Was patient admitted / discharged? @ -Discharged. Lab work unremarkable. Urinalysis is consistent with infection. Urine sent for culture. Given the right flank pain we proceeded with a CT scan of the abdomen and pelvis to evaluate for any signs of ureteral calculus. No evidence of a ureteral calculus was identified. Postsurgical changes are noted at the gallbladder fossa where she had the cholecystectomy done 3 days ago. She does have mild to moderate concentric wall thickening to the urinary bladder consistent with infection. 2g of ceftriaxone and a dose of Levaquin were administered in the emergency department. Symptoms managed as well. Prescriptions for Levaquin, Toradol, and Zofran provided for further management and symptomatic control. Undiagnosed new problem with uncertain prognosis? @ -None Drug Therapy requiring intensive monitoring for toxicity (Heparin, Nitro, Insulin, Cardizem)? @ -None Were any procedures done? @ -None Diagnosis/symptom? @ -UTI Acute, or Chronic, or Acute on Chronic? @ -Acute Uncomplicated (without systemic symptoms) or Complicated (systemic symptoms)? @ -Uncomplicated Side effects of treatment? @ -None Exacerbation, Progression, or Severe Exacerbation] @ -Not applicable Poses a threat to life or bodily function? @ -No Return precautions reviewed in depth, the patient is instructed to return to the emergency department with any new, worsening, or concerning symptoms. Patient verbalized understanding. This case was discussed in detail with the attending ED physician, Dr. Soler. Presentation, findings, and treatment plan discussed in detail as well. - Lab Data Result diagrams: 04/03/24 23:23 04/03/24 23:23 Lab Results 04/03/24 04/03/24 04/03/24 Range/Units 23:03 23:03 23:23 WBC 5.1 (3.8-10.6) k/uL RBC 3.56 L (3.80-5.40) m/uL Hgb 11.4 (11.4-16.0) gm/dL Hct 33.3 L (34.0-46.0) % MCV 93.5 (80.0-100.0) fL MCH 31.9 (25.0-35.0) pg MCHC 34.1 (31.0-37.0) g/dL RDW 12.6 (11.5-15.5) % Plt Count 222 (150-450) k/uL MPV 8.0 Neutrophils % 66 % Lymphocytes % 25 % Monocytes % 7 % Eosinophils % 1 % Basophils % 0 % Neutrophils # 3.4 (1.3-7.7) k/uL Lymphocytes # 1.3 (1.0-4.8) k/uL Monocytes # 0.4 (0-1.0) k/uL Eosinophils # 0.1 (0-0.7) k/uL Basophils # 0.0 (0-0.2) k/uL Sodium (137-145) mmol/L Potassium (3.5-5.1) mmol/L Chloride (98-107) mmol/L Carbon Dioxide (22-30) mmol/L Anion Gap mmol/L BUN (7-17) mg/dL Creatinine (0.52-1.04) mg/dL Est GFR (CKD-EPI)AfAm (>60 ml/min/1.73 sqM) Est GFR (CKD-EPI)NonAf (>60 ml/min/1.73 sqM) Glucose (74-99) mg/dL Plasma Lactic Acid [place] (0.7-2.0) mmol/L Calcium (8.4-10.2) mg/dL Total Bilirubin (0.2-1.3) mg/dL AST (14-36) U/L ALT (4-34) U/L Alkaline Phosphatase (38-126) U/L Total Protein (6.3-8.2) g/dL Albumin (3.5-5.0) g/dL Urine Color Dark Brown Urine Appearance Cloudy H (Clear) Urine pH 6.0 (5.0-8.0) Ur Specific [place] 1.017 (1.001-1.035) Urine Protein 1+ H (Negative) Urine Glucose (UA) Negative (Negative) Urine Ketones Negative (Negative) Urine Blood Trace H (Negative) Urine Nitrite Positive H (Negative) Urine Bilirubin 2+ H (Negative) Urine Urobilinogen 12.0 (<2.0) mg/dL Ur Leukocyte Esterase Negative (Negative) Urine RBC 9 H (0-5) /hpf Urine WBC 56 H (0-5) /hpf Ur Squamous Epith Cells 10 H (0-4) /hpf Urine Bacteria Rare H (None) /hpf Urine Mucus Rare H (None) /hpf Urine HCG, Qual Not Detected (Not Detectd) 04/03/24 04/03/24 Range/Units 23:23 23:23 WBC (3.8-10.6) k/uL RBC (3.80-5.40) m/uL Hgb (11.4-16.0) gm/dL Hct (34.0-46.0) % MCV (80.0-100.0) fL MCH (25.0-35.0) pg MCHC (31.0-37.0) g/dL RDW (11.5-15.5) % Plt Count (150-450) k/uL MPV Neutrophils % % Lymphocytes % % Monocytes % % Eosinophils % % Basophils % % Neutrophils # (1.3-7.7) k/uL Lymphocytes # (1.0-4.8) k/uL Monocytes # (0-1.0) k/uL Eosinophils # (0-0.7) k/uL Basophils # (0-0.2) k/uL Sodium 137 (137-145) mmol/L Potassium 4.2 (3.5-5.1) mmol/L Chloride 103 (98-107) mmol/L Carbon Dioxide 29 (22-30) mmol/L Anion Gap 5 mmol/L BUN 6 L (7-17) mg/dL Creatinine 0.58 (0.52-1.04) mg/dL Est GFR (CKD-EPI)AfAm >90 (>60 ml/min/1.73 sqM) Est GFR (CKD-EPI)NonAf >90 (>60 ml/min/1.73 sqM) Glucose 114 H (74-99) mg/dL Plasma Lactic Acid [place] 0.7 (0.7-2.0) mmol/L Calcium 9.0 (8.4-10.2) mg/dL Total Bilirubin 1.8 H (0.2-1.3) mg/dL AST 36 (14-36) U/L ALT 72 H (4-34) U/L Alkaline Phosphatase 57 (38-126) U/L Total Protein 6.4 (6.3-8.2) g/dL Albumin 4.0 (3.5-5.0) g/dL Urine Color Urine Appearance (Clear) Urine pH (5.0-8.0) Ur Specific [place] (1.001-1.035) Urine Protein (Negative) Urine Glucose (UA) (Negative) Urine Ketones (Negative) Urine Blood (Negative) Urine Nitrite (Negative) Urine Bilirubin (Negative) Urine Urobilinogen (<2.0) mg/dL Ur Leukocyte Esterase (Negative) Urine RBC (0-5) /hpf Urine WBC (0-5) /hpf Ur Squamous Epith Cells (0-4) /hpf Urine Bacteria (None) /hpf Urine Mucus (None) /hpf Urine HCG, Qual (Not Detectd) - Radiology Data Radiology results: report reviewed, image reviewed Disposition Clinical Impression: Urinary tract infection Disposition: HOME SELF-CARE Condition: Stable Instructions (If sedation given, give patient instructions): Urinary Tract Infection in Women (ED) Additional Instructions: Return to the emergency department with any new, worsening, or concerning sy mptoms. Take the antibiotic as prescribed for 5 days. Take the Toradol with Tylenol as needed for pain relief. If you choose to take the Toradol, do not take any other anti-inflammatories such as ibuprofen, take one or the other. You can take the Zofran up to every 8 hours as needed for nausea and vomiting. Follow up with your primary care provider in 1-2 days. Prescriptions: Levofloxacin [Levaquin] 750 mg PO DAILY 5 Days #5 tab Ketorolac [Toradol] 10 mg PO Q6HR PRN #15 tab PRN Reason: Pain Ondansetron Odt [Zofran Odt] 4 mg PO Q8HR PRN #20 tab PRN Reason: Nausea And Vomiting Is patient prescribed a controlled substance at d/c from ED?: No Referrals: Miles Tam MD [Primary Care Provider] - 1-2 days
--- NOTE | 2024-04-04 00:48 | CT ---
EXAMINATION TYPE: CT abdomen pelvis wo con DATE OF EXAM: 04/04/2024 HISTORY: Pt. presents to ED for UTI, was previously at urgent care and ABX. ordered, pt. went to pick abx. up and was unable to as they prescribed abx. she was allergic too, pharmacy now closed. Has had increased back pain. Burning w/ urination. CT DLP: 334.2 mGycm. Automated Exposure Control for Dose Reduction was Utilized. TECHNIQUE: CT scan of the abdomen and pelvis is performed without oral or IV contrast. COMPARISON: Prior CT December 10, 2023 FINDINGS: Within the limitations of a non-contrast study, the following observations are made. LUNG BASES: No significant abnormality is appreciated. LIVER/GB: There is some ill-defined fluid at the level of the gallbladder fossa with foci of air. PANCREAS: No significant abnormality is seen. SPLEEN: No significant abnormality is seen. ADRENALS: No significant abnormality is seen. KIDNEYS: No renal stones or hydronephrosis seen bilaterally. Mild to moderate concentric wall thicken ing to the urinary bladder. BOWEL:. Suboptimal evaluation without enteric contrast. No abnormal small or large bowel dilatation. GENITAL ORGANS: Moderate amount of free fluid in the pelvis axial image 122. LYMPH NODES: No greater than 1cm abdominal or pelvic lymph nodes are appreciated. OSSEOUS STRUCTURES: No significant abnormality is seen. OTHER: Free air anterior to the liver as seen. Additional lesser degree of free air posterior to the liver is noted. IMPRESSION: 1. Some fluid and air at level of gallbladder fossa with free air is present. Patient had cholecystec momo 3 days ago. Findings are nonspecific but favor postsurgical. 2. [id number] concentric wall thickening to the urinary bladder, acute bladder infection needs to be considered. Correlation clinically with lab values is advised. 3. Moderate amount of free fluid in the pelvis is nonspecific finding and may be related to recent suarez rgery.
[2024-04-04] MEDS: cefTRIAXone IN SWFI 1,000 MG/10 ML SYRINGE IVP STA ×2 (01:11)
[2024-04-04] MEDS: KETOROLAC 15 MG/ML 1 ML VIAL IVP STA (01:19)
[2024-04-04] MEDS: HYDROmorphone 1 MG/ML 1 ML SYRINGE IVP STA (01:20)
[2024-04-04] MEDS: PHENAZOPYRIDINE 200 MG TAB PO ONE (01:21)
[2024-04-04] MEDS: LEVOFLOXACIN 750 MG TAB PO STA (01:22)
[2024-04-04 02:03] VITALS: BP 129/81; RESP 20
== END 2024-04-04 01:59 | disposition home or self-care (01) ==
LOC: EC 22:37
DX: N39.0 Urinary tract infection, site not specified (principal); Z88.0 Allergy status to penicillin; Z88.2 Allergy status to sulfonamides; Z88.8 Allergy status to other drugs, medicaments and biological substances
CPT/HCPCS: 36415; 80053; 83605; 85025; 81001; 81025; 87086; 99284; 96374; 96375 ×4; 96361 ×2; 96376 ×2; J2270; J2405; J1885; 74176

== ENCOUNTER 2024-05-21 13:50 | Emergency (ER) | payer OTHER ==
--- NOTE | 2024-05-21 14:34 | ED ---
Chest Pain HPI - General Chief Complaint: Chest Pain Stated Complaint: chest pain Time Seen by Provider: 05/21/24 14:29 Source: patient, RN notes reviewed Mode of arrival: ambulatory Limitations: no limitations - History of Present Illness Initial Comments: 28-year-old female presenting with chest pain 2 hours ago. Patient states she went to lunch with a friend this morning, then afterwards was walking around [employer] when she began to suddenly experience sharp chest pain radiating to the epigastric region, right shoulder, and the back. States this pain was intermittent for about 30 minutes, then has since resolved. She had associated shortness of breath during the episode. She is currently asymptomatic. This has never happened before. Denies history of cardiac or pulmonary conditions. She does admit to cholecystectomy 2 months ago but has had no issues. States she is currently on her menstrual cycle. - Related Data Home Medications Medication Instructions Recorded Confirmed levETIRAcetam 1,000 mg PO BID 12/27/20 05/21/24 Cholecalciferol [Vitamin D3 (25 25 mcg PO DAILY 11/15/21 05/21/24 Mcg = 1000 Iu)] Magnesium Oxide 400 mg PO DAILY 11/15/21 05/21/24 Ubidecarenone [Co Q-10] 200 mg PO DAILY 11/15/21 05/21/24 HYDROcodone/APAP 10-325MG [[place] 1 tab PO TID PRN 05/21/24 05/21/24 10-325] Vitamin E (Dl,Tocopheryl Acet) 400 unit PO DAILY 05/21/24 05/21/24 [Vitamin E (400 Iu = 180 mg)] Allergies Allergy/AdvReac Type Severity Reaction Status Date / Time metoclopramide [From Reglan] Allergy Unknown Facial Verified 05/21/24 15:53 twitching amoxicillin Allergy Rash/Hives Verified 05/21/24 15:53 dextromethorphan Allergy Rash/Hives Verified 05/21/24 15:53 [From Deconsal DM] Penicillins Allergy Rash/Hives Verified 05/21/24 15:53 phenylephrine Allergy Rash/Hives Verified 05/21/24 15:53 [From Deconsal DM] pyrilamine [From Deconsal DM] Allergy Rash/Hives Verified 05/21/24 15:53 raspberry Allergy Rash/Hives Verified 05/21/24 15:53 sulfamethoxazole Allergy Rash/Hives Verified 05/21/24 15:53 [From Bactrim] trimethoprim [From Bactrim] Allergy Rash/Hives Verified 05/21/24 15:53 vancomycin Allergy Rash/Hives Verified 05/21/24 15:53 Review of Systems ROS Statement: Those systems with pertinent positive or pertinent negative responses have been documented in the HPI. ROS Other: All systems not noted in ROS Statement are negative. EKG Findings - EKG Results: EKG: interpreted by COLLETTED (EKG reveals normal sinus rhythm with no ST changes. Ventricular rate 77 bpm, FL interval 127, QRS duration 90, QT/QTc 376/408.) Past Medical History Past Medical History: Seizure Disorder History of Any Multi-Drug Resistant Organisms: None Reported Past Surgical History: Cholecystectomy, Hernia Repair, Orthopedic Surgery Additional Past Surgical History / Comment(s): Cyst removal Past Psychological History: No Psychological Hx Reported Smoking Status: Never smoker Past Alcohol Use History: Rare Past Drug Use History: None Reported General Exam Limitations: no limitations General appearance: alert, in no apparent distress Head exam: Present: atraumatic, normocephalic, normal inspection Eye exam: Present: normal appearance, PERRL, EOMI. Absent: scleral icterus, conjunctival injection, periorbital swelling ENT exam: Present: normal exam, mucous membranes moist Neck exam: Present: normal inspection. Absent: tenderness, meningismus, lymphadenopathy Respiratory exam: Present: normal lung sounds bilaterally. Absent: respiratory distress, wheezes, rales, rhonchi, stridor Cardiovascular Exam: Present: regular rate, normal rhythm, normal heart sounds. Absent: systolic murmur, diastolic murmur, rubs, gallop, clicks GI/Abdominal exam: Present: soft, normal bowel sounds. Absent: distended, tenderness, guarding, rebound, rigid Neurological exam: Present: alert, oriented X3 Psychiatric exam: Present: normal affect, normal mood Skin exam: Present: warm, dry, intact, normal color. Absent: rash Course Vital Signs 05/21/24 05/21/24 13:51 16:55 Temperature 97.8 F 98 F Pulse Rate 78 80 Respiratory 20 18 Rate Blood Pressure 117/80 109/83 O2 Sat by Pulse 99 100 Oximetry Chest Pain MDM - MDM Was pt. sent in by a medical professional or institution (, PA, COUNSELING CENTER DIRECTOR, urgent care, hospital, or fdc...) When possible be specific @ -No Did you speak to anyone other than the patient for history (EMS, parent, family, police, friend...)? What history was obtained from this source @ -No Did you review nursing and triage notes (agree or disagree)? Why? @ -I reviewed and agree with nursing and triage notes Were old charts reviewed (outside hosp., previous admission, EMS record, old EKG, old radiological studies, urgent care reports/EKG's, fdc records)? Report findings @ -No old charts were reviewed Differential Diagnosis (chest pain, altered mental status, abdominal pain women, abdominal pain men, vaginal bleeding, weakness, fever, dyspnea, syncope, headache, dizziness, GI bleed, back pain, seizure, CVA, palpatations, mental health, musculoskeletal)? @ -Differential Chest Pain: Stable Angina, Unstable Angina, STEMI, NSTEMI Aortic Dissection, Pneumothorax, Musculoskeletal, Esophageal Spasm GERD, Cholecystitis, Pancreatitis, Zoster, this is not meant to be an all-inclusive list. EKG interpreted by me (3pts min.). @ -As above X-rays interpreted by me (1pt min.). @ -Chest x-ray reveals no acute process CT interpreted by me (1pt min.). @ -None done U/S interpreted by me (1pt. min.). @ -None done What testing was considered but not performed or refused? (CT, X-rays, U/S, labs)? Why? @ -None What meds were considered but not given or refused? Why? @ -None Did you discuss the management of the patient with other professionals (professionals i.e. , PA, COUNSELING CENTER DIRECTOR, lab, RT, psych nurse, clinical social work therapist, teacher vocational training, teacher, supervisory cbp officer, case fitter)? Give summary @ -No Was smoking cessation discussed for >3mins.? @ -No Was critical care preformed (if so, how long)? @ -No Were there social determinants of health that impacted care today? How? (Homelessness, low income, unemployed, alcoholism, drug addiction, transportation, low edu. Level, literacy, decrease access to med. care, [facility], rehab)? @ -No Was there de-escalation of care discussed even if they declined (Discuss DNR or withdrawal of care, Hospice)? DNR status @ -No What co-morbidities impacted this encounter? (DM, HTN, Smoking, COPD, CAD, Cancer, CVA, ARF, Chemo, Hep., AIDS, mental health diagnosis, sleep apnea, morbid obesity)? @ -None Was patient admitted / discharged? Hospital course, mention meds given and route, prescriptions, significant lab abnormalities, going to OR and other pertinent info. @ -Patient was discharged. Patient was seen and evaluated for episode of chest pain earlier today after eating at a restaurant. Patient recently had a cholecystectomy 2 months ago. No cardiac or pulmonary risk factors. Patient is currently asymptomatic. Vitals are within normal limits. Heart and lungs clear to auscultation bilaterally. Laboratory studies including CBC, CMP, lipase, troponin were unremarkable. EKG revealed normal sinus rhythm with no ST changes. Chest x-ray revealed no acute process. Discussed findings with patient. There are no signs of emergent etiology upon evaluation today. Symptoms are likely due to indigestion. Return precautions discussed with patient and patient is agreeable to plan. Case was discussed with my ED attending Dr. Ruggiero. Patient discharged in stable condition. Undiagnosed new problem with uncertain prognosis? @ -No Drug Therapy requiring intensive monitoring for toxicity (Heparin, Nitro, Insulin, Cardizem)? @ -No Were any procedures done? @ -No Diagnosis/symptom? @ -Chest pain, indigestion Acute, or Chronic, or Acute on Chronic? @ -Acute Uncomplicated (without systemic symptoms) or Complicated (systemic symptoms)? @ -Uncomplicated Side effects of treatment? @ -No Exacerbation, Progression, or Severe Exacerbation? @ -No Poses a threat to life or bodily function? How? (Chest pain, [place], [place], pneumonia, PE, COPD, DKA, ARF, appy, cholecystitis, CVA, Diverticulitis, Homicidal, Suicidal, threat to staff... and all critical care pts) @ -Not at this time Disposition Clinical Impression: Indigestion, Chest pain Disposition: HOME SELF-CARE Condition: Stable Instructions (If sedation given, give patient instructions): Chest Pain (ED) Additional Instructions: Please return to the Emergency Department if symptoms worsen or any other concerns. Is patient prescribed a controlled substance at d/c from ED?: No Referrals: Miles Tam MD [Primary Care Provider] - 1-2 days Time of Disposition: 16:47
[2024-05-21 14:50] LABS: Basophils % (A) 1 %; Eosinophils % (A) 1 %; HCT 37.2 % (34.0-46.0); HGB 12.9 gm/dL (11.4-16.0); Lymphocytes # (A) 1.4 k/uL (1.0-4.8); Lymphocytes % (A) 25 %; MCH 31.8 pg (25.0-35.0); MCHC 34.8 g/dL (31.0-37.0); MCV 91.3 fL (80.0-100.0); Mean Platelet Volume 7.3; Monocytes # (A) 0.3 k/uL (0-1.0); Monocytes % (A) 6 %; Neutrophils # (A) 3.8 k/uL (1.3-7.7); Neutrophils % (A) 68 %; Platelet Count 281 k/uL (150-450); RBC 4.07 m/uL (3.80-5.40); RDW 12.8 % (11.5-15.5); WBC 5.6 k/uL (3.8-10.6)
[2024-05-21 14:57] LABS: ALT 17 U/L (4-34); AST 34 U/L (14-36); African American GFR (CKD) >90 (>60 ml/min/1.73 sqM); Albumin 4.7 g/dL (3.5-5.0); Alkaline Phosphatase 40 U/L (38-126); Anion Gap 9 mmol/L; Blood Urea Nitrogen 15 mg/dL (7-17); Calcium 9.1 mg/dL (8.4-10.2); Carbon Dioxide 25 mmol/L (22-30); Chloride 104 mmol/L (98-107); Glucose 86 mg/dL (74-99); Lipase 62 U/L (23-300); Non-African American GFR(CKD) >90 (>60 ml/min/1.73 sqM); Potassium 4.3 mmol/L (3.5-5.1); Sodium 138 mmol/L (137-145); Total Bilirubin 1.3 mg/dL (0.2-1.3); Total Protein 7.4 g/dL (6.3-8.2)
--- NOTE | 2024-05-21 15:43 | XR ---
EXAMINATION TYPE: XR chest 2V DATE OF EXAM: 05/21/2024 COMPARISON: NONE HISTORY: Chest pain TECHNIQUE: Frontal and lateral views of the chest are obtained. FINDINGS: There is no focal air space opacity, pleural effusion, or pneumothorax seen. The cardiac silhouette size is within normal limits. The osseous structures are intact. IMPRESSION: No acute cardiopulmonary process.
[2024-05-21 16:56] VITALS: BP 109/83; PULSE 80; RESP 18; TEMP 98
== END 2024-05-21 17:20 | disposition home or self-care (01) ==
LOC: EC 13:50
CPT/HCPCS: 36415; 71046; 80053; 81025; 83690; 84484; 85025; 93005; 99285

== ENCOUNTER 2024-08-31 19:43 | Emergency (ER) | payer OTHER ==
[2024-08-31 19:52] VITALS: TEMP 99.9
[2024-08-31] MEDS: KETOROLAC 15 MG/ML 1 ML VIAL IVP STA (20:22)
[2024-08-31] MEDS: SODIUM CHLORIDE 0.9% 1,000 ML IV ONE (20:23)
[2024-08-31] MEDS: ONDANSETRON 4 MG/2 ML VIAL IVP STA (20:23)
[2024-08-31] MEDS: ACETAMINOPHEN TAB 325 MG TAB PO STA (20:23)
[2024-08-31 21:23] VITALS: RESP 20
[2024-08-31] MEDS: Acetaminophen-Codeine 300-30mg TAB PO STA (22:06)
[2024-08-31 22:39] LABS: Appearance,Urine Cloudy (Clear); Bilirubin,Urine Negative (Negative); Blood,Urine Negative (Negative); Color,Urine Yellow; Glucose,Urine (UA) Negative (Negative); Ketones,Urine 3+ (Negative); Leukocyte Esterase,Urine Trace (Negative); Mucus,Urine Many /hpf; Nitrite,Urine Negative (Negative); Protein,Urine 1+ (Negative); RBC,Urine 3 /hpf (0-5); Specific Gravity,Urine 1.037 (1.001-1.035); Squamous Epithelial Cell,Urine 9 /hpf (0-4); WBC,Urine 5 /hpf (0-5)
--- NOTE | 2024-08-31 23:20 | ED ---
General Adult HPI - General Chief complaint: Nausea/Vomiting/Diarrhea Stated complaint: flu symtoms Time Seen by Provider: 08/31/24 19:54 Source: patient Mode of arrival: ambulatory Limitations: no limitations - History of Present Illness Initial comments: 29-year-old female presenting chief complaint of nausea and vomiting. Patient was seen here yesterday and was diagnosed with influenza A. States that today she has been unable to tolerate any oral intake due to her nausea and vomiting. She also admits to diarrhea. She has had decreased urinary output today. She is also having some burning with urination and back pain. Admits to fever. Admits to cough and congestion. No difficulty breathing or chest pain. She is having abdominal discomfort with no localized pain. - Related Data Home Medications Medication Instructions Recorded Confirmed levETIRAcetam 1,000 mg PO BID 12/27/20 05/21/24 Cholecalciferol [Vitamin D3 (25 25 mcg PO DAILY 11/15/21 05/21/24 Mcg = 1000 Iu)] Magnesium Oxide 400 mg PO DAILY 11/15/21 05/21/24 Ubidecarenone [Co Q-10] 200 mg PO DAILY 11/15/21 05/21/24 HYDROcodone/APAP 10-325MG [[place] 1 tab PO TID PRN 05/21/24 05/21/24 10-325] Vitamin E (Dl,Tocopheryl Acet) 400 unit PO DAILY 05/21/24 05/21/24 [Vitamin E (400 Iu = 180 mg)] Previous Rx's Medication Instructions Recorded Ondansetron Odt [Zofran Odt] 4 mg PO Q8HR PRN #20 tab 08/31/24 Allergies Allergy/AdvReac Type Severity Reaction Status Date / Time metoclopramide [From Reglan] Allergy Unknown Facial Verified 08/31/24 19:49 twitching amoxicillin Allergy Rash/Hives Verified 08/31/24 19:49 dextromethorphan Allergy Rash/Hives Verified 08/31/24 19:49 [From Deconsal DM] Penicillins Allergy Rash/Hives Verified 08/31/24 19:49 phenylephrine Allergy Rash/Hives Verified 08/31/24 19:49 [From Deconsal DM] pyrilamine [From Deconsal DM] Allergy Rash/Hives Verified 08/31/24 19:49 raspberry Allergy Rash/Hives Verified 08/31/24 19:49 sulfamethoxazole Allergy Rash/Hives Verified 08/31/24 19:49 [From Bactrim] trimethoprim [From Bactrim] Allergy Rash/Hives Verified 08/31/24 19:49 vancomycin Allergy Rash/Hives Verified 08/31/24 19:49 Review of Systems ROS Statement: Those systems with pertinent positive or pertinent negative responses have been documented in the HPI. ROS Other: All systems not noted in ROS Statement are negative. Past Medical History Past Medical History: Seizure Disorder History of Any Multi-Drug Resistant Organisms: None Reported Past Surgical History: Cholecystectomy, Hernia Repair, Orthopedic Surgery Additional Past Surgical History / Comment(s): Cyst removal Past Psychological History: No Psychological Hx Reported Smoking Status: Never smoker Past Alcohol Use History: Rare Past Drug Use History: None Reported General Exam Limitations: no limitations General appearance: alert, in no apparent distress Head exam: Present: atraumatic, normocephalic, normal inspection Eye exam: Present: normal appearance, EOMI Neck exam: Present: normal inspection. Absent: meningismus Respiratory exam: Present: normal lung sounds bilaterally. Absent: respiratory distress, wheezes, rales, rhonchi, stridor Cardiovascular Exam: Present: normal rhythm, tachycardia, normal heart sounds. Absent: systolic murmur, diastolic murmur, rubs, gallop, clicks GI/Abdominal exam: Present: soft. Absent: distended, tenderness, guarding, rebound, rigid Extremities exam: Present: normal inspection Back exam: Present: normal inspection. Absent: tenderness, CVA tenderness (R), CVA tenderness (L) Neurological exam: Present: alert, oriented X3 Psychiatric exam: Present: normal affect, normal mood Skin exam: Present: normal color Course Vital Signs 08/31/24 08/31/24 08/31/24 19:49 21:22 23:26 Temperature 99.9 F H Pulse Rate 140 H 110 H 100 Respiratory 18 20 20 Rate Blood Pressure 103/75 100/68 115/79 O2 Sat by Pulse 98 98 100 Oximetry Medical Decision Making - Medical Decision Making Was pt. sent in by a medical professional or institution (, PA, APPAREL SALES ASSOCIATE, urgent care, hospital, or half-way...) When possible be specific @ -No Did you speak to anyone other than the patient for history (EMS, parent, family, police, friend...)? What history was obtained from this source @ -No Did you review nursing and triage notes (agree or disagree)? Why? @ -I reviewed and agree with nursing and triage notes Were old charts reviewed (outside hosp., previous admission, EMS record, old EKG, old radiological studies, urgent care reports/EKG's, half-way records)? Report findings @ -No old charts were reviewed Differential Diagnosis (chest pain, altered mental status, abdominal pain women, abdominal pain men, vaginal bleeding, weakness, fever, dyspnea, syncope, headache, dizziness, GI bleed, back pain, seizure, CVA, palpatations, mental health, musculoskeletal)? @ -Differential includes influenza, bowel obstruction, gastroenteritis, appendicitis, cholecystitis, this is not an all-inclusive list EKG interpreted by me (3pts min.). @ -EKG shows sinus tachycardia with short NE interval. Ventricular rate 119. NE interval 116. QRS 84. QT 301. QTc 371. X-rays interpreted by me (1pt min.). @ -None done CT interpreted by me (1pt min.). @ -None done U/S interpreted by me (1pt. min.). @ -None done What testing was considered but not performed or refused? (CT, X-rays, U/S, labs)? Why? @ -None What meds were considered but not given or refused? Why? @ -None Did you discuss the management of the patient with other professionals (professionals i.e. , PA, APPAREL SALES ASSOCIATE, lab, RT, psych nurse, high school social science teacher, handbag parts cutter, teacher, retail loss prevention officer, case management coordinator)? Give summary @ -No Was smoking cessation discussed for >3mins.? @ -No Was critical care preformed (if so, how long)? @ -No Were there social determinants of health that impacted care today? How? (Homelessness, low income, unemployed, alcoholism, drug addiction, transportation, low edu. Level, literacy, decrease access to med. care, half-way, rehab)? @ -No Was there de-escalation of care discussed even if they declined (Discuss DNR or withdrawal of care, Hospice)? DNR status @ -No What co-morbidities impacted this encounter? (DM, HTN, Smoking, COPD, CAD, Cancer, CVA, ARF, Chemo, Hep., AIDS, mental health diagnosis, sleep apnea, morbid obesity)? @ -None Was patient admitted / discharged? Hospital course, mention meds given and route, prescriptions, significant lab abnormalities, going to OR and other pertinent info. @ -29-year-old female presenting with chief complaint of nausea and vomiting. Diagnosed with influenza yesterday. She is having some urinary symptoms today. History and physical examination are conducted. Urine shows evidence of dehydration with 3+ ketones. There is contamination with 9 squamous cells, no evidence for infection. Negative hCG. EKG shows sinus tachycardia, likely due to dehydration. Patient receives IV fluids, Zofran, Toradol, and Tylenol. On reassessment she reports improvement in her symptoms. She is able to tolerate oral intake. She is educated on today's findings and supportive management at home. Discharged. Follow-up with PCP. Report back to ER with any new or worsening symptoms. Discussed return parameters and answered all questions. Patient conveyed verbal understanding and agreed to the plan. I discussed this case in detail with my attending Dr. Merritt Undiagnosed new problem with uncertain prognosis? @ -No Drug Therapy requiring intensive monitoring for toxicity (Heparin, Nitro, Insulin, Cardizem)? @ -No Were any procedures done? @ -No Diagnosis/symptom? @ -Influenza Acute, or Chronic, or Acute on Chronic? @ -Acute Uncomplicated (without systemic symptoms) or Complicated (systemic symptoms)? @ -Complicated Side effects of treatment? @ -No Exacerbation, Progression, or Severe Exacerbation? @ -No Poses a threat to life or bodily function? How? (Chest pain, [place], NH, pneumonia, PE, COPD, DKA, ARF, appy, cholecystitis, CVA, Diverticulitis, Homicidal, Suicidal, threat to staff... and all critical care pts) @ -Low likelihood - Lab Data Lab Results 08/31/24 08/31/24 Range/Units 20:04 20:04 Urine Color Yellow Urine Appearance Cloudy H (Clear) Urine pH 6.0 (5.0-8.0) Ur Specific [place] 1.037 H (1.001-1.035) Urine Protein 1+ H (Negative) Urine Glucose (UA) Negative (Negative) Urine Ketones 3+ H (Negative) Urine Blood Negative (Negative) Urine Nitrite Negative (Negative) Urine Bilirubin Negative (Negative) Urine Urobilinogen 2.0 (<2.0) mg/dL Ur Leukocyte Esterase Trace H (Negative) Urine RBC 3 (0-5) /hpf Urine WBC 5 (0-5) /hpf Ur Squamous Epith Cells 9 H (0-4) /hpf Urine Mucus Many H (None) /hpf Urine HCG, Qual Not Detected (Not Detectd) Disposition Clinical Impression: Influenza Disposition: HOME SELF-CARE Condition: Good Instructions (If sedation given, give patient instructions): Influenza (ED), Acute Nausea and Vomiting (ED) Additional Instructions: Follow-up with PCP. Report back to ER with any new or worsening symptoms. Alternate Motrin and Tylenol as needed for fever control. Stay well-hydrated Prescriptions: Ondansetron Odt [Zofran Odt] 4 mg PO Q8HR PRN #20 tab PRN Reason: Nausea Is patient prescribed a controlled substance at d/c from ED?: No Referrals: Miles Tam MD [Primary Care Provider] - 1-2 days Time of Disposition: 23:20
[2024-08-31 23:26] VITALS: BP 115/79; PULSE 100
== END 2024-08-31 23:31 | disposition home or self-care (01) ==
LOC: EC 19:43
DX: J10.1 Influenza due to other identified influenza virus with other respiratory manifestations (principal); R00.0 Tachycardia, unspecified; Z88.0 Allergy status to penicillin; Z88.1 Allergy status to other antibiotic agents; Z88.2 Allergy status to sulfonamides; Z88.8 Allergy status to other drugs, medicaments and biological substances; Z91.018 Allergy to other foods
CPT/HCPCS: 93005; 81001; 81025; 99284; 96374; 96375; 96361; J2405; J1885

== ENCOUNTER → 2024-09-26 | Outpatient (CLI) | payer OTHER ==
[2024-09-26 08:56] VITALS: BP 119/82; PULSE 86; RESP 17; TEMP 97.6
--- NOTE | 2024-09-26 15:37 | P.PAINPG ---
PQRS Measure Charge Sheet Comment: HISTORY OF PRESENT ILLNESS: A 29 yr old female as a referral from Dr Tam presents today w severe and chronic R groin pain > 1 yr secondary to R inguinal neuritis for evaluation. Pt states pain level is provoked at 6 /10 in intensity, constant, localized in the R groin, predominantly axial, sore in character without shooting pain. Pain is provoked by over activity. Neurontin and Lyrica has been ineffective. Pain is alleviated by PT x 4 wks which she is currently in, heat, ice, medications ([place], Ibu), topicals, repositioning and rest . PMH: OA, Seizure Disorder PSH: Cholecystectomy, Inguinal Hernia Repair (2022), Orthopedic Surgery SH: Negative x3 FH: Non contributory All: See list Meds: See list REVIEW OF ORGAN SYSTEMS: CONSTITUTIONAL: No fevers or chills. No recent weight loss. NEUROLOGICAL: + numbness and tingling along the distal extremities. No seizure disorders or headaches. MUSCULOSKELETAL: + pain PSYCHIATRIC: Denies current depression or suicidal thoughts. Physical Examinations : Constitutional : Cooperative , not in acute distress . Neurologic : Cranial nerve II to XII intact. No focal neurological deficits. Psychiatric : alert & oriented x 3. Matching mood & appropriate affect. Judgment & insight intact. Musculoskeletal : Cervical Spine Motor strength in the deltoid and biceps: Normal right side. Normal Left side Motor strength biceps and the wrist extensors: Normal right side . Normal left side Motor strength in the triceps muscle: Normal right side. Normal left side Deep tendon reflexes: Normal at the biceps. Normal at Brachioradialis. Normal at triceps Vertebral body tenderness to deep palpation over Cervical facet loading test: positive bilaterally Spurling test: positive bilaterally Neck distraction test: positive bilaterally Jaime sign: positive bilaterally Lumbar spine +R Inguinal TTP Motor strength lower extremities ,thigh and legs 5/5 Right side , 5/5 Left side Deep tendon reflexes : Normal Knee Jerk. Normal Ankle Jerk Vertebral body tenderness over Gonzalez Test positive Lumbar facet Loading Test: positive Right / positive Left Range of motion of the lumbar spine Flexion 30 degrees, extension 10 degrees Straight Leg Raise test: Left/ Right positive at degrees Amor test: positive right / positive left. Severe tenderness over the Sacroiliac joint on the Right / Left sides Gaenslen test: positive bilaterally Seated flexion test: positive bilaterally. Sacral spine : Severe tenderness over the Sacroiliac joint: right side / left side Range of motion: Flexion of the lumbar spine <60 degrees Range of motion: Extension of the lumbar spine <20 degrees Gaenslen's Test positive Amor test: positive right side / left side Thigh Thrust Test Sacral Thrust Test Imaging: CT non contrast Abd/ Pelvis on 04/04/[address] contrast Abd/ Pelvis on 12/10/23 reviewed Assessment/ Plan : Inguinal Neuritis Recommendation of R ilioinguinal injection #1. Risks, benefits of procedure discussed and patient verbalized understanding. Admits to anti- coagulant use or medical history of diabetes. Protocol for discontinuation/ continuation of medications osmar procedure discussed. Minimal anesthesia provided, as clinically indicated for deep injection past layers of incisional scar tissue, consisting of Versed and Fentanyl. All questions answered. I have spent greater than 30 minutes on patient care today. Dr Perdomo was available by phone for the evaluation of this patient. The time was used to review the medical records including relevant urine studies and Prescription history (MAPs), review of the available imaging, evaluation and examination of the patient, coordination of care with the medical staff and if applicable referring physicians, as well as creation of the medical record - Pain Location Right Groin Non-Pharmacological Interventions: Inactivity Pharmacological Interventions: PRN Medication Home Medications: Ambulatory Orders levETIRAcetam 1,000 mg PO BID 12/27/20 Cholecalciferol [Vitamin D3 (25 Mcg = 1000 Iu)] 25 mcg PO DAILY 11/15/21 Magnesium Oxide 400 mg PO DAILY 11/15/21 Ubidecarenone [Co Q-10] 200 mg PO DAILY 11/15/21 Vitamin E (Dl,Tocopheryl Acet) [Vitamin E (400 Iu = 180 mg)] 400 unit PO DAILY 05/21/24 Ondansetron Odt [Zofran Odt] 4 mg PO Q8HR PRN #20 tab 08/31/24 HYDROcodone/APAP 10-325MG [[place] 10-325] 1 tab PO Q4H PRN 3 Days #18 tab 09/26/24 Controlled Substance Measures - Controlled Substance Measures Is patient prescribed a controlled substance at discharge?: Yes When asked, does pt state using other controlled substances?: No If prescribed controlled substance>3 days was MAPS reviewed?: Prescribed <3 Days
== END ==
LOC: PNWHC3 08:13
PROVIDERS: ATTEND Specialist
DX: M79.2 Neuralgia and neuritis, unspecified (principal); Z88.0 Allergy status to penicillin; Z88.2 Allergy status to sulfonamides; Z88.1 Allergy status to other antibiotic agents; Z91.018 Allergy to other foods; Z88.8 Allergy status to other drugs, medicaments and biological substances
CPT/HCPCS: 99211

== ENCOUNTER 2024-12-25 14:55 | Emergency (ER) | payer OTHER ==
--- NOTE | 2024-12-25 15:38 | ED ---
General Adult HPI - General Chief complaint: Nausea/Vomiting/Diarrhea Stated complaint: NVD, back pain Time Seen by Provider: 12/25/24 15:06 Source: patient, RN notes reviewed Mode of arrival: ambulatory Limitations: no limitations - History of Present Illness Initial comments: 29-year-old female presents to the emergency department for evaluation of na usea, vomiting, diarrhea. Notes that symptoms started at 5 AM today. She states that since then she has had difficulty holding down food and fluids. She does report others in her household with symptoms similar recently. She denies any fever, chills. Admits to some abdominal discomfort mostly in her upper abdomen. She does note prior abdominal hernia repair, cholecystectomy. - Related Data Home Medications Medication Instructions Recorded Confirmed levETIRAcetam 1,000 mg PO BID 12/27/20 12/25/24 Cholecalciferol [Vitamin D3 (25 50 mcg PO DAILY 11/15/21 12/25/24 Mcg = 1000 Iu)] Magnesium Oxide 400 mg PO HS 11/15/21 12/25/24 Ubidecarenone [Co Q-10] 200 mg PO DAILY 11/15/21 12/25/24 Vitamin E (Dl,Tocopheryl Acet) 400 unit PO DAILY 05/21/24 12/25/24 [Vitamin E (400 Iu = 180 mg)] Cyanocobalamin (Vitamin B-12) 1,000 mcg PO DAILY 12/25/24 12/25/24 [Vitamin B-12] Folic Acid 1 mg PO DAILY 12/25/24 12/25/24 HYDROcodone/APAP 7.5-325MG [[place] 1 tab PO TID PRN 12/25/24 12/25/24 7.5-325] Ibuprofen [Motrin Ib] 600 - 800 mg PO Q6H PRN 12/25/24 12/25/24 Allergies Allergy/AdvReac Type Severity Reaction Status Date / Time metoclopramide [From Reglan] Allergy Unknown Facial Verified 12/25/24 16:45 twitching amoxicillin Allergy Rash/Hives Verified 12/25/24 16:45 dextromethorphan Allergy Rash/Hives Verified 12/25/24 16:45 [From Deconsal DM] Penicillins Allergy Rash/Hives Verified 12/25/24 16:45 phenylephrine Allergy Rash/Hives Verified 12/25/24 16:45 [From Deconsal DM] pyrilamine [From Deconsal DM] Allergy Rash/Hives Verified 12/25/24 16:45 raspberry Allergy Rash/Hives Verified 12/25/24 16:45 sulfamethoxazole Allergy Rash/Hives Verified 12/25/24 16:45 [From Bactrim] trimethoprim [From Bactrim] Allergy Rash/Hives Verified 12/25/24 16:45 vancomycin Allergy Rash/Hives Verified 12/25/24 16:45 Review of Systems ROS Statement: Those systems with pertinent positive or pertinent negative responses have been documented in the HPI. ROS Other: All systems not noted in ROS Statement are negative. Past Medical History Past Medical History: Seizure Disorder History of Any Multi-Drug Resistant Organisms: None Reported Past Surgical History: Cholecystectomy, Hernia Repair, Orthopedic Surgery Additional Past Surgical History / Comment(s): Cyst removal Past Psychological History: No Psychological Hx Reported Smoking Status: Never smoker Past Alcohol Use History: Rare Past Drug Use History: None Reported General Exam Limitations: no limitations General appearance: alert, in no apparent distress Head exam: Present: atraumatic, normocephalic, normal inspection Eye exam: Present: normal appearance, PERRL, EOMI. Absent: scleral icterus, c onjunctival injection, periorbital swelling ENT exam: Present: normal exam, mucous membranes moist Neck exam: Present: normal inspection. Absent: tenderness, meningismus, lymphadenopathy Respiratory exam: Present: normal lung sounds bilaterally. Absent: respiratory distress, wheezes, rales, rhonchi, stridor Cardiovascular Exam: Present: regular rate, normal rhythm, normal heart sounds. Absent: systolic murmur, diastolic murmur, rubs, gallop, clicks GI/Abdominal exam: Present: soft, normal bowel sounds. Absent: distended, tenderness, guarding, rebound, rigid Extremities exam: Present: normal inspection, full ROM, normal capillary refill. Absent: tenderness, pedal edema, joint swelling, calf tenderness Back exam: Present: normal inspection Neurological exam: Present: alert, oriented X3 Psychiatric exam: Present: normal affect, normal mood Skin exam: Present: warm, dry, intact, normal color. Absent: rash Course Vital Signs 12/25/24 12/25/24 15:02 17:40 Temperature 98.0 F Pulse Rate 133 H 108 H Respiratory 17 16 Rate Blood Pressure 143/76 O2 Sat by Pulse 97 99 Oximetry Medical Decision Making - Medical Decision Making Was pt. sent in by a medical professional or institution (ROBERTO Howard, SLITTER OPERATOR, urgent care, hospital, or care home...) When possible be specific @ -[No] Did you speak to anyone other than the patient for history (EMS, parent, family, police, friend...)? What history was obtained from this source @ -[No] Did you review nursing and triage notes (agree or disagree)? Why? @ -[I reviewed and agree with nursing and triage notes] Were old charts reviewed (outside hosp., previous admission, EMS record, old EKG, old radiological studies, urgent care reports/EKG's, care home records)? Report findings @ -[No old charts were reviewed] Differential Diagnosis (chest pain, altered mental status, abdominal pain women, abdominal pain men, vaginal bleeding, weakness, fever, dyspnea, syncope, headache, dizziness, GI bleed, back pain, seizure, CVA, palpatations, mental health, musculoskeletal)? @ -Differential Abdominal Pain Women: Appendicitis, Cholecystitis, diverticulosis, ischemic bowel, pancreatitis, hepatitis, UTI, gastroenteritis, AAA, incarcerated hernia, bowel obstruction, c onstipation, inflammatory bowel, hepatitis, peptic ulcer disease, splenic infarction, perforated viscus, vulvitis, ovarian torsion, PID, kidney stone, placenta abruption, this is not meant to be an all-inclusive list ] EKG interpreted by me (3pts min.). @ -None X-rays interpreted by me (1pt min.). @ -[None done] CT interpreted by me (1pt min.). @ -[None done] U/S interpreted by me (1pt. min.). @ -[None done] What testing was considered but not performed or refused? (CT, X-rays, U/S, labs)? Why? @ -[None] What meds were considered but not given or refused? Why? @ -[None] Did you discuss the management of the patient with other professionals (professionals i.e. ROBERTO Howard, SLITTER OPERATOR, lab, RT, psych nurse, long term care social worker, dredge operator, teacher, military source operations officer, lining caser)? Give summary @ -[No] Was smoking cessation discussed for >3mins.? @ -[No] Was critical care preformed (if so, how long)? @ -[No] Were there social determinants of health that impacted care today? How? (Homelessness, low income, unemployed, alcoholism, drug addiction, transportation, low edu. Level, literacy, decrease access to med. care, [facility], rehab)? @ -[No] Was there de-escalation of care discussed even if they declined (Discuss DNR or withdrawal of care, Hospice)? DNR status @ -[No] What co-morbidities impacted this encounter? (DM, HTN, Smoking, COPD, CAD, Cancer, CVA, ARF, Chemo, Hep., AIDS, mental health diagnosis, sleep apnea, morbid obesity)? @ -[None] Was patient admitted / discharged? Hospital course, mention meds given and route, prescriptions, significant lab abnormalities, going to OR and other pert inent info. @ -[hospital course] Undiagnosed new problem with uncertain prognosis? @ -[No] Drug Therapy requiring intensive monitoring for toxicity (Heparin, Nitro, Insulin, Cardizem)? @ -[No] Were any procedures done? @ -[No] Diagnosis/symptom? @ -[default] Acute, or Chronic, or Acute on Chronic? @ -[default] Uncomplicated (without systemic symptoms) or Complicated (systemic symptoms)? @ -[default] Side effects of treatment? @ -[No] Exacerbation, Progression, or Severe Exacerbation? @ -[No] Poses a threat to life or bodily function? How? (Chest pain, [place], SC, pneumonia, PE, COPD, DKA, ARF, appy, cholecystitis, CVA, Diverticulitis, Homicidal, Suicidal, threat to staff... and all critical care pts) @ -[No] - Lab Data Result diagrams: 12/25/24 15:53 12/25/24 15:53 Lab Results 12/25/24 12/25/24 12/25/24 Range/Units 15:53 15:53 15:53 WBC 6.18 (4.50-10.00) 10*3/uL RBC 4.81 (4.10-5.20) 10*6/uL Hgb 15.4 H (12.0-15.0) g/dL Hct 42.7 (37.2-46.3) % MCV 88.8 (80.0-97.0) fL MCH 32.0 (27.0-32.0) pg MCHC 36.1 (32.0-37.0) g/dL Plt Count 251 (140-440) 10*3/uL MPV 9.6 (9.5-12.2) fL Immature Gran % (Auto) 0.2 % Neutrophils % 89.0 % Lymphocytes % 6.0 % Monocytes % 3.7 % Eosinophils % 0.8 % Basophils % 0.3 % Immature Gran # 0.01 (0.00-0.04) 10*3/uL Neutrophils # 5.50 (1.80-7.70) 10*3/uL Lymphocytes # 0.37 L (0.90-5.00) 10*3/uL Monocytes # 0.23 (0.20-1.00) 10*3/uL Eosinophils # 0.05 (0.04-0.35) 10*3/uL Basophils # 0.02 (0.00-0.10) 10*3/uL Sodium 141 (137-145) mmol/L Potassium 3.7 (3.5-5.1) mmol/L Chloride 104 (98-107) mmol/L Carbon Dioxide 24 (22-30) mmol/L Anion Gap 13 mmol/L BUN 14 (7-17) mg/dL Creatinine 0.74 (0.52-1.04) mg/dL Est GFR (CKD-EPI)AfAm >90 (>60 ml/min/1.73 sqM) Est GFR (CKD-EPI)NonAf >90 (>60 ml/min/1.73 sqM) Glucose 94 (74-99) mg/dL Calcium 10.0 (8.4-10.2) mg/dL Total Bilirubin 2.7 H (0.2-1.3) mg/dL AST 29 (14-36) U/L ALT 88 H (4-34) U/L Alkaline Phosphatase 76 (38-126) U/L Total Protein 8.4 H (6.3-8.2) g/dL Albumin 5.0 (3.5-5.0) g/dL Lipase 90 (23-300) U/L Urine Color Urine Appearance (Clear) Urine pH (5.0-8.0) Ur Specific [place] (1.001-1.035) Urine Protein (Negative) Urine Glucose (UA) (Negative) Urine Ketones (Negative) Urine Blood (Negative) Urine Nitrite (Negative) Urine Bilirubin (Negative) Urine Urobilinogen (<2.0) mg/dL Ur Leukocyte Esterase (Negative) Urine RBC (0-5) /hpf Urine WBC (0-5) /hpf Ur Squamous Epith Cells (0-4) /hpf Urine Bacteria (None) /hpf Urine Mucus (None) /hpf Urine HCG, Qual (Not Detectd) Influenza Type A (PCR) Not Detected (Not Detectd) Influenza Type B (PCR) Not Detected (Not Detectd) RSV (PCR) Not Detected (Not Detectd) SARS-CoV-2 (PCR) Not Detected (Not Detectd) 12/25/24 12/25/24 Range/Units 16:38 16:38 WBC (4.50-10.00) 10*3/uL RBC (4.10-5.20) 10*6/uL Hgb (12.0-15.0) g/dL Hct (37.2-46.3) % MCV (80.0-97.0) fL MCH (27.0-32.0) pg MCHC (32.0-37.0) g/dL Plt Count (140-440) 10*3/uL MPV (9.5-12.2) fL Immature Gran % (Auto) % Neutrophils % % Lymphocytes % % Monocytes % % Eosinophils % % Basophils % % Immature Gran # (0.00-0.04) 10*3/uL Neutrophils # (1.80-7.70) 10*3/uL Lymphocytes # (0.90-5.00) 10*3/uL Monocytes # (0.20-1.00) 10*3/uL Eosinophils # (0.04-0.35) 10*3/uL Basophils # (0.00-0.10) 10*3/uL Sodium (137-145) mmol/L Potassium (3.5-5.1) mmol/L Chloride (98-107) mmol/L Carbon Dioxide (22-30) mmol/L Anion Gap mmol/L BUN (7-17) mg/dL Creatinine (0.52-1.04) mg/dL Est GFR (CKD-EPI)AfAm (>60 ml/min/1.73 sqM) Est GFR (CKD-EPI)NonAf (>60 ml/min/1.73 sqM) Glucose (74-99) mg/dL Calcium (8.4-10.2) mg/dL Total Bilirubin (0.2-1.3) mg/dL AST (14-36) U/L ALT (4-34) U/L Alkaline Phosphatase (38-126) U/L Total Protein (6.3-8.2) g/dL Albumin (3.5-5.0) g/dL Lipase (23-300) U/L Urine Color Yellow Urine Appearance Cloudy H (Clear) Urine pH 5.5 (5.0-8.0) Ur Specific [place] 1.029 (1.001-1.035) Urine Protein Negative (Negative) Urine Glucose (UA) Negative (Negative) Urine Ketones Negative (Negative) Urine Blood Negative (Negative) Urine Nitrite Negative (Negative) Urine Bilirubin Negative (Negative) Urine Urobilinogen <2.0 (<2.0) mg/dL Ur Leukocyte Esterase Negative (Negative) Urine RBC 1 (0-5) /hpf Urine WBC 2 (0-5) /hpf Ur Squamous Epith Cells 13 H (0-4) /hpf Urine Bacteria Occasional H (None) /hpf Urine Mucus Moderate H (None) /hpf Urine HCG, Qual Not Detected (Not Detectd) Influenza Type A (PCR) (Not Detectd) Influenza Type B (PCR) (Not Detectd) RSV (PCR) (Not Detectd) SARS-CoV-2 (PCR) (Not Detectd) Disposition Clinical Impression: Gastroenteritis Disposition: HOME SELF-CARE Condition: Stable Instructions (If sedation given, give patient instructions): Acute Nausea and Vomiting (ED) Additional Instructions: Please follow up with your doctor. Return to the emergency department for new or worsening symptoms. Is patient prescribed a controlled substance at d/c from ED?: No Referrals: Miles Tam MD [Primary Care Provider] - 1-2 days
[2024-12-25] MEDS: ONDANSETRON 4 MG/2 ML VIAL IVP STA (15:48)
[2024-12-25] MEDS: SODIUM CHLORIDE 0.9% 500 ML 500 ML IV ONE (15:50)
[2024-12-25] MEDS: SODIUM CHLORIDE 0.9% 1,000 ML IV ONE (15:50)
[2024-12-25 16:00] LABS: Basophils # (A) 0.02 10*3/uL (0.00-0.10); Basophils % (A) 0.3 %; Eosinophils # (A) 0.05 10*3/uL (0.04-0.35); Eosinophils % (A) 0.8 %; HCT 42.7 % (37.2-46.3); HGB 15.4 g/dL (12.0-15.0); Lymphocytes # (A) 0.37 10*3/uL (0.90-5.00); MCHC 36.1 g/dL (32.0-37.0); MCV 88.8 fL (80.0-97.0); Mean Platelet Volume 9.6 fL (9.5-12.2); Monocytes # (A) 0.23 10*3/uL (0.20-1.00); Monocytes % (A) 3.7 %; Platelet Count 251 10*3/uL (140-440); RBC 4.81 10*6/uL (4.10-5.20); RDW 12.4 % (11.5-14.5); WBC 6.18 10*3/uL (4.50-10.00)
[2024-12-25] MEDS: KETOROLAC 15 MG/ML 1 ML VIAL IVP STA (16:01)
[2024-12-25 16:21] LABS: ALT 88 U/L (4-34); AST 29 U/L (14-36); African American GFR (CKD) >90 (>60 ml/min/1.73 sqM); Alkaline Phosphatase 76 U/L (38-126); Anion Gap 13 mmol/L; Blood Urea Nitrogen 14 mg/dL (7-17); Carbon Dioxide 24 mmol/L (22-30); Chloride 104 mmol/L (98-107); Glucose 94 mg/dL (74-99); Lipase 90 U/L (23-300); Non-African American GFR(CKD) >90 (>60 ml/min/1.73 sqM); Potassium 3.7 mmol/L (3.5-5.1); Sodium 141 mmol/L (137-145); Total Bilirubin 2.7 mg/dL (0.2-1.3); Total Protein 8.4 g/dL (6.3-8.2)
[2024-12-25 16:36] LABS: Influenza A Not Detected (Not Detectd); Influenza B Not Detected (Not Detectd); RSV Not Detected (Not Detectd)
[2024-12-25 16:52] LABS: Appearance,Urine Cloudy (Clear); Bacteria,Urine Occasional /hpf; Bilirubin,Urine Negative (Negative); Blood,Urine Negative (Negative); Color,Urine Yellow; Glucose,Urine (UA) Negative (Negative); Ketones,Urine Negative (Negative); Leukocyte Esterase,Urine Negative (Negative); Mucus,Urine Moderate /hpf; Nitrite,Urine Negative (Negative); PH, Urine 5.5 (5.0-8.0); Protein,Urine Negative (Negative); RBC,Urine 1 /hpf (0-5); Specific Gravity,Urine 1.029 (1.001-1.035); Squamous Epithelial Cell,Urine 13 /hpf (0-4); Urobilinogen,Urine <2.0 mg/dL (<2.0); WBC,Urine 2 /hpf (0-5)
[2024-12-25 17:41] VITALS: RESP 16
[2024-12-25] MEDS: MORPHINE SULFATE 4 MG/ML SYRINGE IVP STA (17:55)
[2024-12-25] MEDS: PROCHLORPERAZINE INJ 10 MG/2 ML VIAL IVP STA (18:35)
[2024-12-25] MEDS: levETIRAcetam 500 MG TAB PO STA (18:58)
[2024-12-25] MEDS: ONDANSETRON 4 MG ODT STARTER PACK 2 TAB BTL PO STA (19:31)
[2024-12-25 19:34] VITALS: BP 114/82; PULSE 98; TEMP 98.3
== END 2024-12-25 19:34 | disposition home or self-care (01) ==
LOC: EC 14:55
DX: K52.9 Noninfective gastroenteritis and colitis, unspecified (principal); Z88.0 Allergy status to penicillin; Z88.1 Allergy status to other antibiotic agents; Z88.2 Allergy status to sulfonamides; Z88.6 Allergy status to analgesic agent; Z91.018 Allergy to other foods; Z88.8 Allergy status to other drugs, medicaments and biological substances
CPT/HCPCS: 36415; 80053; 83690; 85025; 81001; 81025; 87636; 99284; 96374; 96375; 96361; J2270; J0780; J2405; J1885; S0119

== ENCOUNTER → 2025-03-29 | Outpatient (CLI) | payer OTHER | END | disposition home or self-care (01) | LOC: LABWHC1 07:34 | PROVIDERS: ATTEND Obstetrics & Gynecology | DX: N85.9 Noninflammatory disorder of uterus, unspecified (principal) | CPT/HCPCS: 36415; 84702 ==